=== PATIENT | female | born 1940 | race Caucasian/White ===

== ENCOUNTER 2017-10-17 22:06 | Emergency (ER) | payer MEDICARE ==
[~2017-10-17] VITALS: Ht 157.5 cm; Wt 74.4 kg
[~2017-10-17 22:06] MED LIST: ACET325; ACET325 PO; ALBU3IS; ALBU90OI INH; AMOCLA875 PO; AMOX875 PO; ASCO250CH PO; ASPI325 PO; ASPI81EC PO; AZIT250 PO; AZO STANDARD; Aspir-Low81 MG; Ativan0.5 MG PO; B Complex1 EAC2 PO; BISM87SU PO; BUME1 PO; CALGLU500 PO; CARI350 PO; CEPH500; CHOL10002; CIPR500 PO; CLARITIN PO; CLIN300 PO; CLON.2 PO; CONESTTC PV; CYAN1000I IM; CYAN500 PO; Cranberry300 MG PO; DELESTROGEN; DIPH50 PO; ESTROVEN 155 M155 MG PO; FAMO40 PO; FISH OIL OTC PO; FOLIC ACID; GLUCHON PO; GLUCOSAMINE CHONDROI; GLUCOSAMINE-CH1 EAC8 PO; GLUCOSAMINE/CHONDROI; HYDCHL12.5 PO; Hydrocodone-Ap1 EA23 PO; IPRAOI INH; IRBE75 PO; IRBESARTAN300 MG PO; IRBHYD150 PO; KEFLEX; Keflex500 MG PO; LEVSOD100 PO; LEVSOD88 PO; LIPITOR; LISI20 PO; LOPE2C; LORA1 PO; LORA10ER PO; MECL25 PO; METPRE4DP PO; MULVITB&C PO; NATURE S BOUNTY; NYSTRIT; Norco 5-325 Ta1 EACH PO; OMEP20ER; OXYB5 PO; PHENA200 PO; POTCHL20ER PO; PRED20 PO; PREMARIN CREAM; Percocet 5-3251 EACH PO; Pyridium200 MG; Pyridium200 MG PO; RANI150 PO; RXLORA1 PO; SERT25; SOMA350 MG PO; VALS80 PO; VICODIN 5-3001 EACH PO; VITAMIN B COMP; VITAMIN C; Veetids 500500 MG PO
[2017-10-17] MEDS ORDERED: Cleocin HCl300 MG PO (22:45)
[2018-08-22] MEDS ORDERED: Zofran Odt4 MG PO (05:00)
[2018-08-22] MEDS ORDERED: K-Dur20 MEQ PO (05:00)
[2018-08-26] MEDS ORDERED: Pyridium100 MG PO (22:08)
[2018-08-26] MEDS ORDERED: CEPH500 PO (22:08)
== END 2017-10-17 23:30 | disposition home or self-care (01) ==
LOC: ER 22:06
DX: L97.529 Non-pressure chronic ulcer of other part of left foot with unspecified severity (principal); I10 Essential (primary) hypertension; E03.9 Hypothyroidism, unspecified; I25.2 Old myocardial infarction; Z88.8 Allergy status to other drugs, medicaments and biological substances; Z88.1 Allergy status to other antibiotic agents; Z88.5 Allergy status to narcotic agent; Z88.6 Allergy status to analgesic agent; Z88.0 Allergy status to penicillin; Z88.2 Allergy status to sulfonamides; Z91.09 Other allergy status, other than to drugs and biological substances; Z79.899 Other long term (current) drug therapy; Z79.82 Long term (current) use of aspirin; Z86.73 Personal history of transient ischemic attack (TIA), and cerebral infarction without residual deficits; Z90.710 Acquired absence of both cervix and uterus; Z87.891 Personal history of nicotine dependence
CPT/HCPCS: 99283

== ENCOUNTER → 2018-01-04 | Outpatient (CLI) | payer MEDICARE ==
[~2018-01-04] MED LIST changes: +Cleocin HCl300 MG PO
== END ==
LOC: LAB SHORT 16:38 → LAB 16:38
DX: R30.0 Dysuria (principal)
CPT/HCPCS: 87077; 87086; 87186

== ENCOUNTER 2018-01-11 10:13 | Emergency (ER) | payer MEDICARE ==
[~2018-01-11] VITALS: Ht 157.5 cm; Wt 70.3 kg
[2018-01-11 11:06] LABS: Source, Urine Voided
[2018-01-11 11:18] LABS: BASOPHILS ABSOLUTE AUTO 0.03 K/mm3 (0.00-0.23); BASOPHILS PERCENT AUTO 0 % (0-2); EOSINOPHILS ABSOLUTE AUTO 0.04 K/mm3 (0.00-0.68); EOSINOPHILS PERCENT AUTO 1 % (0-6); Hematocrit 42.4 % (33.0-51.0); IMMATURE GRAN ABSOLUTE AUTO 0.04 K/mm3 (0.00-0.10); IMMATURE GRAN PERCENT AUTO 1 % (0-1); LYMPHOCYTES ABSOLUTE AUTO 1.24 K/mm3 (0.84-5.20); LYMPHOCYTES PERCENT AUTO 16 % (21-46); MONOCYTES ABSOLUTE AUTO 0.37 K/mm3 (0.16-1.47); MONOCYTES PERCENT AUTO 5 % (4-13); Mean Corpuscular HGB 29.9 pg (26.0-34.0); Mean Corpuscular Volume 91 fL (80-100); Mean Platelet Volume 10.6 fL (9.1-12.4); NEUTROPHILS ABSOLUTE AUTO 6.21 K/mm3 (1.96-9.15); NEUTROPHILS PERCENT AUTO 78 % (41-73); Platelet Count 248 K/mm3 (150-400); RDW Standard Deviation 42.7 fL (35.1-46.3); Red Blood Cell Count 4.68 M/mm3 (3.80-5.20); White Blood Cell Count 7.93 K/mm3 (4.00-11.30)
[2018-01-11 11:27] LABS: Alanine Aminotransfer (ALT/SGP 20 U/L (12-78); Albumin, Blood 3.6 g/dL (3.4-5.0); Albumin/Globulin Ratio 1.1 (0.8-1.8); Alk Phos 62 U/L (50-136); Anion Gap 7 mmol/L (6-16); Aspartate Aminotrans (AST/SGOT 20 U/L (12-37); Bilirubin, Total 0.7 mg/dL (0.1-1.0); Blood Urea Nitrogen 7 mg/dL (8-24); Bun/Creatinine Ratio 13.6 (12.0-20.0); CO2, Blood 26 mmol/L (21-32); Calcium, Blood 8.3 mg/dL (8.5-10.1); Chloride, Blood 110 mmol/L (98-108); Creatinine, Blood 0.52 mg/dL (0.40-1.00); Globulin, Blood 3.4 g/dL (2.2-4.0); Glomerular Filtration Rate >60 (60-); Glucose, Blood 95 mg/dL (70-99); Potassium, Blood 3.2 mmol/L (3.5-5.5); Sodium, Blood 143 mmol/L (136-145)
[2018-01-11 11:42] LABS: Bilirubin, Urine Neg (Neg); Blood, Urine 2+ (Neg); Glucose Qualitative, Urine Neg (Neg); Ketones, Urine Neg (Neg); Leukocyte Esterase, Urine Neg (Neg); Nitrite, Urine Pos (Neg); Protein, Urine Neg (Neg); Urobilinogen, Urine NORM (Normal)
[2018-01-11 12:21] LABS: Appearance, Urine Clear (Clear); Color, Urine Pale Yellow (P-Yellow)
[2018-01-11 12:23] LABS: Bacteria Many /hpf; Squamous Epithelial Cells Few /hpf (Few); White Blood Cells, Urine 0-2 /hpf (0-5)
[2018-01-11] MEDS ORDERED: Keflex500 MG PO (13:25)
== END 2018-01-11 13:45 | disposition home or self-care (01) ==
LOC: ER 10:13
PROVIDERS: Emergency Medicine
DX: N39.0 Urinary tract infection, site not specified (principal); Z88.8 Allergy status to other drugs, medicaments and biological substances; Z88.1 Allergy status to other antibiotic agents; Z88.5 Allergy status to narcotic agent; Z88.6 Allergy status to analgesic agent; Z88.2 Allergy status to sulfonamides; Z91.041 Radiographic dye allergy status; Z79.899 Other long term (current) drug therapy; Z79.82 Long term (current) use of aspirin; Z79.2 Long term (current) use of antibiotics; E03.9 Hypothyroidism, unspecified; I10 Essential (primary) hypertension; I25.2 Old myocardial infarction
CPT/HCPCS: 70450; 80053; 81001; 85025; 87077; 87086; 87186; 99284

== ENCOUNTER 2018-05-24 13:28 | Emergency (ER) | payer MEDICARE ==
[~2018-05-24] VITALS: Ht 167.6 cm; Wt 72.6 kg
== END 2018-05-24 15:11 | disposition home or self-care (01) ==
LOC: ER 13:28
DX: I96 Gangrene, not elsewhere classified (principal); E03.9 Hypothyroidism, unspecified; I10 Essential (primary) hypertension; I25.2 Old myocardial infarction; Z88.8 Allergy status to other drugs, medicaments and biological substances; Z88.1 Allergy status to other antibiotic agents; Z88.5 Allergy status to narcotic agent; Z88.6 Allergy status to analgesic agent; Z88.0 Allergy status to penicillin; Z88.2 Allergy status to sulfonamides; Z91.048 Other nonmedicinal substance allergy status; Z86.73 Personal history of transient ischemic attack (TIA), and cerebral infarction without residual deficits; Z87.891 Personal history of nicotine dependence
CPT/HCPCS: 99283

== ENCOUNTER 2018-08-11 13:06 | Emergency (ER) | payer MEDICARE ==
[~2018-08-11] VITALS: Ht 157.5 cm; Wt 72.6 kg
== END 2018-08-11 14:11 | disposition home or self-care (01) ==
LOC: ER 13:06
DX: Z00.00 Encounter for general adult medical examination without abnormal findings (principal); I10 Essential (primary) hypertension; Z88.8 Allergy status to other drugs, medicaments and biological substances; Z88.1 Allergy status to other antibiotic agents; Z88.5 Allergy status to narcotic agent; Z88.6 Allergy status to analgesic agent; Z88.0 Allergy status to penicillin; Z88.2 Allergy status to sulfonamides; Z87.891 Personal history of nicotine dependence
CPT/HCPCS: 99283

== ENCOUNTER 2018-11-17 13:34 | Emergency (ER) | payer MEDICARE ==
[~2018-11-17] VITALS: Ht 167.6 cm; Wt 56.7 kg
[~2018-11-17 13:34] MED LIST changes: +CEPH500 PO; +K-Dur20 MEQ PO; +Pyridium100 MG PO; +Zofran Odt4 MG PO
[2018-11-17 14:05] LABS: Source, Urine Clean Catch
[2018-11-17 14:11] LABS: Bilirubin, Urine Neg (Neg); Blood, Urine 2+ (Neg); Glucose Qualitative, Urine Neg (Neg); Ketones, Urine Neg (Neg); Leukocyte Esterase, Urine 3+ (Neg); Nitrite, Urine Neg (Neg); Protein, Urine Neg (Neg); Specific Gravity, Urine 1.015 (1.003-1.022); Urobilinogen, Urine NORM (Normal)
[2018-11-17 15:32] LABS: Appearance, Urine Hazy (Clear); Color, Urine Yellow (P-Yellow)
[2018-11-17 15:33] LABS: Bacteria Mod /hpf; Red Blood Cells, Urine 0-2 /hpf (0-2); Squamous Epithelial Cells Mod /hpf (Few)
[2018-11-17] MEDS ORDERED: Pyridium100 MG PO (15:35)
[2018-11-17] MEDS ORDERED: Keflex500 MG PO (15:35)
== END 2018-11-17 16:05 | disposition home or self-care (01) ==
LOC: ER 13:34
PROVIDERS: Physician Assistant
DX: N39.0 Urinary tract infection, site not specified (principal); I10 Essential (primary) hypertension; F03.90 Unspecified dementia, unspecified severity, without behavioral disturbance, psychotic disturbance, mood disturbance, and anxiety; Z88.8 Allergy status to other drugs, medicaments and biological substances; Z88.1 Allergy status to other antibiotic agents; Z88.5 Allergy status to narcotic agent; Z87.891 Personal history of nicotine dependence
CPT/HCPCS: 81001; 87077; 87086; 87186; 99283

== ENCOUNTER 2018-11-18 11:33 | Emergency (ER) | payer MEDICARE ==
[~2018-11-18] VITALS: Ht 160 cm; Wt 70.3 kg
== END 2018-11-18 12:20 | disposition home or self-care (01) ==
LOC: ER 11:33
DX: N39.0 Urinary tract infection, site not specified (principal); I10 Essential (primary) hypertension; I25.2 Old myocardial infarction; E03.9 Hypothyroidism, unspecified
CPT/HCPCS: 99283

== ENCOUNTER 2018-11-29 21:36 | Emergency (ER) | payer MEDICARE ==
[~2018-11-29] VITALS: Ht 162.6 cm; Wt 68.0 kg
== END 2018-11-30 01:00 | disposition home or self-care (01) ==
LOC: ER 21:36
DX: Z00.00 Encounter for general adult medical examination without abnormal findings (principal); I10 Essential (primary) hypertension; I25.2 Old myocardial infarction; F03.90 Unspecified dementia, unspecified severity, without behavioral disturbance, psychotic disturbance, mood disturbance, and anxiety; E03.9 Hypothyroidism, unspecified; Z87.440 Personal history of urinary (tract) infections; Z86.73 Personal history of transient ischemic attack (TIA), and cerebral infarction without residual deficits; Z88.1 Allergy status to other antibiotic agents; Z88.2 Allergy status to sulfonamides; Z88.5 Allergy status to narcotic agent; Z88.6 Allergy status to analgesic agent; Z88.0 Allergy status to penicillin; Z91.048 Other nonmedicinal substance allergy status; Z88.8 Allergy status to other drugs, medicaments and biological substances

== ENCOUNTER 2018-12-01 19:54 | Emergency (ER) | payer MEDICARE ==
[~2018-12-01] VITALS: Ht 165.1 cm; Wt 83.9 kg
== END 2018-12-02 00:26 | disposition home or self-care (01) ==
LOC: ER 19:54
DX: M53.3 Sacrococcygeal disorders, not elsewhere classified (principal); F03.90 Unspecified dementia, unspecified severity, without behavioral disturbance, psychotic disturbance, mood disturbance, and anxiety; I10 Essential (primary) hypertension; E03.9 Hypothyroidism, unspecified; I25.2 Old myocardial infarction; Z88.8 Allergy status to other drugs, medicaments and biological substances; Z88.1 Allergy status to other antibiotic agents; Z88.5 Allergy status to narcotic agent; Z88.6 Allergy status to analgesic agent; Z88.0 Allergy status to penicillin; Z88.2 Allergy status to sulfonamides; Z91.041 Radiographic dye allergy status; Z86.73 Personal history of transient ischemic attack (TIA), and cerebral infarction without residual deficits; Z87.891 Personal history of nicotine dependence
CPT/HCPCS: 99283

== ENCOUNTER 2018-12-03 15:41 | Observation (INO) | payer MEDICARE ==
[~2018-12-03] VITALS: Ht 162.6 cm; Wt 57.1 kg
[2018-12-03 16:58] LABS: Source, Urine Clean Catch
[2018-12-03 17:04] LABS: BASOPHILS ABSOLUTE AUTO 0.02 K/mm3 (0.00-0.23); BASOPHILS PERCENT AUTO 0 % (0-2); EOSINOPHILS ABSOLUTE AUTO 0.06 K/mm3 (0.00-0.68); EOSINOPHILS PERCENT AUTO 1 % (0-6); Hematocrit 42.2 % (33.0-51.0); Hemoglobin 13.9 g/dL (11.5-16.0); IMMATURE GRAN ABSOLUTE AUTO 0.02 K/mm3 (0.00-0.10); IMMATURE GRAN PERCENT AUTO 0 % (0-1); LYMPHOCYTES ABSOLUTE AUTO 1.17 K/mm3 (0.84-5.20); LYMPHOCYTES PERCENT AUTO 15 % (21-46); MONOCYTES PERCENT AUTO 7 % (4-13); Mean Corpuscular HGB 30.3 pg (26.0-34.0); Mean Corpuscular HGB Conc 32.9 g/dL (31.5-36.5); Mean Corpuscular Volume 92 fL (80-100); Mean Platelet Volume 10.4 fL (9.1-12.4); NEUTROPHILS ABSOLUTE AUTO 5.84 K/mm3 (1.96-9.15); NEUTROPHILS PERCENT AUTO 77 % (41-73); Platelet Count 285 K/mm3 (150-400); RDW Standard Deviation 43.8 fL (35.1-46.3); Red Blood Cell Count 4.59 M/mm3 (3.80-5.20); White Blood Cell Count 7.61 K/mm3 (4.00-11.30)
[2018-12-03 17:08] LABS: Blood, Urine Neg (Neg); Glucose Qualitative, Urine Neg (Neg); Ketones, Urine Neg (Neg); Leukocyte Esterase, Urine Neg (Neg); Nitrite, Urine Pos (Neg); Protein, Urine 2+ (Neg); Urobilinogen, Urine 3+ (Normal)
[2018-12-03 17:29] LABS: Appearance, Urine Hazy (Clear); Bilirubin, Urine 3+ (Neg); Color, Urine Orange (P-Yellow)
[2018-12-03 17:32] LABS: Bacteria Mod /hpf; Mucus Light (0-Heavy); Squamous Epithelial Cells Few /hpf (Few)
[2018-12-03 17:39] LABS: U Amphetamine Screen Not Detected; U Barbituate Screen Not Detected; U Benzodiazapine Screen Not Detected; U Buprenorphine Screen Not Detected; U Cannabinoids Screen Not Detected; U Cocaine Screen Not Detected; U Methadone Screen Not Detected; U Methamphetamine Screen Not Detected; U Opiates Screen Not Detected; U Oxycodone Screen Not Detected; U Phencyclidine Screen Not Detected; U Propoxyphene Screen Not Detected
[2018-12-03 17:43] LABS: Alanine Aminotransfer (ALT/SGP 15 U/L (12-78); Albumin, Blood 3.4 g/dL (3.4-5.0); Alk Phos 63 U/L (50-136); Anion Gap 6 mmol/L (6-16); Aspartate Aminotrans (AST/SGOT 11 U/L (12-37); Bilirubin, Total 0.3 mg/dL (0.1-1.0); Blood Urea Nitrogen 10 mg/dL (8-24); Bun/Creatinine Ratio 20.4 (12.0-20.0); CO2, Blood 30 mmol/L (21-32); Calcium, Blood 8.8 mg/dL (8.5-10.1); Chloride, Blood 109 mmol/L (98-108); Creatinine, Blood 0.49 mg/dL (0.40-1.00); Ethanol (Alcohol), Blood, Med <3 mg/dL; Globulin, Blood 3.3 g/dL (2.2-4.0); Glomerular Filtration Rate >60 (60-); Glucose, Blood 93 mg/dL (70-99); Potassium, Blood 3.1 mmol/L (3.5-5.5); Salicylate <1.7 mg/dL (2.8-20.0); Sodium, Blood 145 mmol/L (136-145); Total Protein, Blood 6.7 g/dL (6.4-8.2)
[2018-12-03 17:53] LABS: Acetaminophen, Random <2.0 ug/mL (10.0-30.0)
--- NOTE | 2018-12-06 15:31 | NUR ---
PATIENT ARRIVES VIA RECLINER. UNABLE TO GET ANY INFO FROM PATIENT. WHEN ASKED ABOUT HAVING CANCER, STS "EVERY DAY FOR PAST FEW YEARS." THEN TALKS ABOUT HORSES. PHONE NUMBER IN CHART DISCONNECTED, UNABLE TO TALK TO RELATIVES.
--- NOTE | 2018-12-06 16:42 | NUR ---
ALERT TO SELF. HAS BEEN COOPERATIVE SO FAR. WHEN ASKED QUESTION GOES OFF ONTO A FLIGHT OF IDEAS FROM ONE WORD. UNSTEADY ON FEET. CHAIR ALARM ON. UNABLE TO REACH ANY RELATIVES--NUMBER IN CHART DISCONNECTED AND CELL PHONE NUMBER OBTAINED FROM PHARM ALSO DISCONNECTED. BED IN LOW POSITION. SITTER IN ROOM. WILL CONTINUE TO MONITOR.
--- NOTE | 2018-12-06 17:39 | NUR ---
PER DR.KHAN EMANUEL FOR NO IV ASSESS AND CHANGE ZOFRAN TO P.O.
--- NOTE | 2018-12-06 18:10 | NUR ---
PATIENT VIOLENT WITH STAFF. ATTEMPTS TO PUNCH AND KICK EMPLOYEE BENEFITS DIRECTOR. REQUEST RESTRAINTS FROM . OK TO USE VEST OR 4-POINT SOFT.
--- NOTE | 2018-12-06 22:04 | NUR ---
2056 PT LYING IN BED, DENIES ANY DISCOMFORT AT THIS TIME. REFUSING MEDICATIONS AT THIS TIME. CONFUSED CONVERSATION. PT GETS AGITATED IF YOU ATTEMPT TO GIVE HER MEDICATION OR CARE FOR HER BUT WHEN LEFT ALONE APPEARS CALMER. WILL CONT. TO MONITOR. SITTER IN ROOM. CALL LIGHT IN REACH.
--- NOTE | 2018-12-07 01:31 | NUR ---
0019 ASSISTED CATTLE AND WHEAT FARMER IN CHANGING PT. PT EXPRESSING ANGER OVER RESTRAINTS, THREATENING TO KICK US IN THE HEAD FOR CHANGING HER ATTENDS. CONFUSED CONVERSATION. SITTER IN ROOM. CALL LIGHT IS IN REACH.
--- NOTE | 2018-12-07 01:32 | NUR ---
PT LYING IN BED, EYES CLOSED, APPEARS TO BE RESTIG. BREATHING IS EVEN, UNLABORED. NO APPARENT SIGNS OF DISTRESS. CALL LIGHT IS IN REACH. SITTER IS IN ROOM.
--- NOTE | 2018-12-07 04:10 | NUR ---
PT LYING IN BED, EYES CLOSED, APPEARS TO BE RESTING. BREATHING IS EVEN, UNLABORED. NO APPARENT SIGNS OF DISTRESS. SITTER IS IN ROOM. CALL LIGHT IS IN REACH.
--- NOTE | 2018-12-07 04:10 | NUR ---
PT IS ORIENTED TO SELF ONLY. PT DENIED ANY DISCOMFORT FOR THIS SHIFT. ON RA. NO IV-OK TO LEAVE OUT. INCONTINENT, WEARS ATTENDS AND OCCASIONALLY USES BEDPAN. RESTAINTS IN PLACE, PT IS CONFUSED AND ATTEMPTS TO GET OUT BED, SHE IS A HIGH FALL RISK, PT PULLS AT LINES, PT WAS COMBATIVE IN THE ER HOWEVER SINCE ARRIVING TO MEDICAL SHE HAS THREATENED TO HARM STAFF BUT HAS NOT ACTED ON THESE THREATS. PT HAD A SITTER THAT CAME WITH HER FROM THE ER AND STILL HAS A SITTER AT THIS TIME.
--- NOTE | 2018-12-07 04:35 | NUR ---
I WANTED TO ADD THAT AT ONE POINT WHEN WE WERE ASSISTING HER TO USE THE BEDPAN, SHE STATED THAT HER LEGS HADN'T FELT THIS GOOD IN DAYS. THAT SHE HADN'T FELT THIS GOOD IN GENERAL IN DAYS. THE STATISTICAL ASSISTANT AND I TOLD HER WE WERE SO GLAD TO HERE THAT, THAT WAS A VERY GOOD THING TO HEAR. PT STATED IT WAS A VERY GOOD THING FOR HER TO BE ABLE TO SAY AND THEN SHE STARTED TO SMILE A TINY BIT. I REMARKED THAT I THOUGHT I SAW THE START OF A SMILE COMING ON AND THEN SHE SMILED REALLY BIG AND SAID "MAYBE".
--- NOTE | 2018-12-07 05:59 | NUR ---
PT BECAME VERY AGITATED, GOT HERSELF UNTIED FROM HER CHEIKH AND WRIST RESTRAINTS, WAS ATTEMPTING TO LEAVE. CONFUSED CONVERSATION, ASKING WHY WE WERE IN HER HOME, WHO THE HELL DID WE THINK WE WERE, AND OTHER CONFUSED CONVERSATION STATEMENTS. HAD TO CALL SECURITY FOR ASSISTANCE WITH GETTING PATIENT BACK INTO BED, CHANGING HER ATTENDS, AND GIVING HER IM HALDOL. WILL MONITOR FOR EFFECT. PT IS BACK IN BED, RESTRAINTS IN PLACE. SITTER IN ROOM. CALL LIGHT IN REACH. WILL CONT. TO MONITOR. NO OTHER CHANGES THIS SHIFT.
--- NOTE | 2018-12-07 17:44 | NUR ---
PATIENT ORIENTED TO SELF. DOES NOT MAKE MUCH SENSE WHEN TALKING. VISUAL HALLUCINATIONS. PER RECEIVABLE CLERKJOSE CARLOS. DAUGHTER IS GOING FOR [employer]. DAUGHTER STS PATIENT AND FIGHT A LOT. PATIENT NONSTOP TALKING WHEN STAFF IN ROOM AND GOES TO ALL SORTS OF TANGENTS. UNLABORED RESPIRATIONS. DENIES PAIN. VIDEO CAMERA ON. RESTRAINTS RENEWED. WILL CONTINUE TO MONITOR.
--- NOTE | 2018-12-08 07:32 | NUR ---
alert to self, sees hears things others are unaware of, call light in reach, walking rounds completed with day staff
--- NOTE | 2018-12-08 18:07 | NUR ---
PT ALERT VERY CONFUSED, WITH HALUCINATIONS, PT IS A STANDBY ASSIST UP TO THE BATHROOM AND TO THE CHAIR, THE PT IS IN RESTRAINTS AT THIS TIME, THE PT WAS TRIED OFF OF THE RESTRAINTS HOWEVER THE PT WAS UNSTEADY AND INSISTING THAT SHE WAS READY TO GO AND ACTUALLY TRIED TO LEAVE DOWN THE OBRIEN, AT THAT POINT THE RESTRAINTS WERE REAPPLIED, BED AND CHAIR ALRM USED CALL LIGHT IN REACH PT OFFERED WATER T/O THE DAY
--- NOTE | 2018-12-09 06:56 | NUR ---
SHIFT SUMMARY PT HAS REMAINED AWAKE THE ENTIRE SHIFT. PT REFUSED HS MEDS; WOULD NOT TAKE ANYTHING. SAID SHE WOULD TAKE THEM A FEW TIMES AND THEN CHANGE HER MIND. PT ATTEMPTED TO GET OOB MULTIPLE TIMES, PULLING ON RESTRAINTS. PT COMPLETELY CONFUSED AND DISORIENTED. DOES NOT MAKE ANY SENSE. TALKED TO IMAGINARY PEOPLE ALL NIGHT. CALLING THE HR REPRESENTATIVE. YELLING OUT WHEN HEARING OTHER PT'S. NO ACUTE DISTRESS NOTED OR REPORTED. PT WAITING FOR PLACEMENT. BED ALARM AND CHEIKH ON.
--- NOTE | 2018-12-09 17:55 | NUR ---
PT IS ALERT ORIENTED TO SELF ONLY, PT IS UP WITH STAND BY ASSIST, PT HAS BEEN UP INTO THE CHAIR FOR MOST OF THE DAY, PT REMAINS IN A CHEIKH VEST RESTRAINT DUE TO CONFUSED WANDERING AND UNSTEADY GAIT, THE PT DENIED ANY PAIN T/O THE DAY, THE PT WAS GIVEN ZYPREXA 5 MG X1 TODAY THAT HAD LITTLE TO NO EFFECT, PT APPEARS TO BE BREATHING EASILY ON RA AT THIS TIME, CHAIR ALARM IN USE
--- NOTE | 2018-12-09 18:28 | NUR ---
Chantal is aggitated and confused. She was restless saying, "I gotta get this stuff packed and organized." She was fussing with bundles of blankets--moving them from one part of the bed to another. I was unable to calm or divert her attention from "getting this done." [facility]
--- NOTE | 2018-12-10 04:58 | NUR ---
*SHIFT SUMMARY* PATIENT IS ALERT TO SELF. SAT UP IN CHAIR AT BEGINING OF SHIFT IN CHEIKH VEST FOLDING LAUNDRY. PATIENT TOOK SEROQUEL IN [place]ER[place]ERT ICE CREAM AND THEN STATED SHE NEEDED TO GO TO BED. STAFF ASSISTED HER TO BED, GAIT WAS STEADY WITH ASSIST. BED LOWERED AND LOCKED WITH CALL LIGHT IN REACH. PATIENT SLEPT THROUGHOUT THE NIGHT. VITAL SIGNS STABLE. CHEIKH VEST ON IN BED.
[2018-12-10 05:00] LABS: Albumin, Blood 2.9 g/dL (3.4-5.0); Anion Gap 6 mmol/L (6-16); Blood Urea Nitrogen 14 mg/dL (8-24); Bun/Creatinine Ratio 29.7 (12.0-20.0); CO2, Blood 28 mmol/L (21-32); Calcium, Blood 8.4 mg/dL (8.5-10.1); Chloride, Blood 111 mmol/L (98-108); Creatinine, Blood 0.47 mg/dL (0.40-1.00); Glomerular Filtration Rate >60 (60-); Glucose, Blood 91 mg/dL (70-99); Phosphorus, Blood 3.1 mg/dL (2.5-4.9); Potassium, Blood 3.4 mmol/L (3.5-5.5); Sodium, Blood 145 mmol/L (136-145)
--- NOTE | 2018-12-10 15:37 | NUR ---
Pt is seated in her recliner. She seems busy, picking at things on her chair, very active. Per nurse, Debbi, patient is not oriented. She is agitated frequently. Call placed to pt's daughter, Ilana. Reviewed plan of care. Notes indicate that Navin Briceno was discussed with case planner, but not settled on. She does want to confirm that these plans are tenative, and she states that pt now has bilingual patient support caseworker at [facility]. I instructed that I do not know of these plans, but I can have Rosa call and discuss with her. She would like that. Reviewed code status with her. She is telling me that her mother would "never want to be resusitated. Discussed more, reviewed POLST. She would like the POLST to state limited code, DNR/DNI. No artificial nutrition. POLST filled out according to her wishes. Call placed to to notify of code change. RN to place order. Will also follow up with case planner, Rosa.
--- NOTE | 2018-12-10 18:24 | NUR ---
SHIFT SUMMARY WILL ASSESS FOR ANY CHANGES. PATIENT IS CURRENTLY IN A CHEIKH IN HER RECLINER. NO ACUTE CONCERNS WITH THE PATIENT AT THIS TIME. SHE IS STILL VERY AGITATED AND DOES NOT LIKE BEING IN THE HOSPITAL. DR. MONTGOMERY REQUESTS THAT WE TRY TO MEDICATE THE PATIENT AND REMOVE THE RESTRAINTS. AT THIS TIME I DO NOT BELIEVE THIS IS IN THE PATIENT'S BEST INTEREST.
--- NOTE | 2018-12-11 06:04 | NUR ---
SHIFT SUMMARY PT STILL NEEDING CHEIKH RESTRAINT. SAT IN CHAIR UNTIL ABOUT MIDNIGHT THEN SHE WAS READY TO GO TO BED. HAD BM IN BSC BEFORE GETTING INTO BED. TRIED TO GET OOB HERSELF A COUPLE TIMES. SHE WAS ABLE TO SLEEP ON AND OFF T/O NIGHT. BED ALARM IN USE.
--- NOTE | 2018-12-12 01:02 | NUR ---
12/12/18 0100 HALDOL 10 MG IM TO LEFT THIGH PT EXTREMELY AGITATED AND KICKED RN EARLIER WHEN TRYING TO GIVE HER APPLESAUCE.
[2018-12-12 05:23] LABS: Albumin, Blood 3.2 g/dL (3.4-5.0); Anion Gap 7 mmol/L (6-16); Blood Urea Nitrogen 9 mg/dL (8-24); Bun/Creatinine Ratio 21.1 (12.0-20.0); CO2, Blood 27 mmol/L (21-32); Calcium, Blood 8.5 mg/dL (8.5-10.1); Chloride, Blood 110 mmol/L (98-108); Creatinine, Blood 0.43 mg/dL (0.40-1.00); Glomerular Filtration Rate >60 (60-); Glucose, Blood 89 mg/dL (70-99); Potassium, Blood 3.4 mmol/L (3.5-5.5); Sodium, Blood 144 mmol/L (136-145)
--- NOTE | 2018-12-12 07:36 | NUR ---
12/12/18 0630 YELLING AND AWAKE MOST OF NIGHT. RESTRAINT MAINTAINED. SLEPT A COUPLE OF HOURS AFTER HALDOL WAS GIVEN. VITALS STABLE.
--- NOTE | 2018-12-12 18:06 | NUR ---
PT HAS BEEN IN BED WITH POSE VEST SHE DOES NOT HOLD STILL AND CONINUES TO BE A FALL RISK. PT HALLUCINATES AND IS AOX3. PT SPENT MOST OF THE MORING TALKING TO HERSELF AND IS A TWO PERSON TO BEDSIDE COMMODE. PT DOES NOT KNOW HOW TO CALL APPROPRIATELY. WILL CONTINUE TO MONITOR.
--- NOTE | 2018-12-13 02:18 | NUR ---
12/13/18 0210 PT CONTINUOUSLY TRYING TO GET UP. ASSISTED TO BR FOR VOIDING TWICE IN 15 MINUTES. LAST TIME NO VOID. CONFUSED AND STATES FAMILY COMING TO PICK HER UP. RE-ORIENTED NUMEROUS TIMES. SEE MAR FOR MED GIVEN.
--- NOTE | 2018-12-13 06:37 | NUR ---
12/13/18 0615 PT SLEEPING NOW AFTER BEING AWAKE MOST OF NIGHT. CHEIKH VEST MAINTAINED PT IS HIGH FALL RISK AND DOES NOT FOLLOW DIRECTIONS. VITALS STABLE. UP TO BSC SEVERAL TIMES THIS SHIFT FOR VOIDINGS. ENCOURAGED ORAL INTAKE BUT HAS TAKEN FLUIDS FAIR.
[2018-12-13 07:53] LABS: Magnesium, Blood 2.2 mg/dL (1.6-2.4); Potassium, Blood 3.9 mmol/L (3.5-5.5)
--- NOTE | 2018-12-13 19:19 | NUR ---
SHIFT SUMMARY PT UP IN RECLINER CHAIR MOST OF DAY. HAD VISUAL HALLUCINATIONS THIS MORNING AND WAS EASILY DISTRACTED. VEST RESTRAINT IN PLACE FOR SAFETY. 1 PERSON ASSIST TO COMMODE. TALKING ALMOST CONSTANTLY WHILE ALONE IN ROOM AND FIDDLING WITH ANYTHING SHE CAN GET AHOLD OF INCLUDING ANYTHING ON COMPUTER TABLE. IT WAS MOVED AND PTS CHAIR READJUSTED. IN ROOM VISITING TWICE TODAY.
--- NOTE | 2018-12-14 07:56 | NUR ---
12/14/18 0600 CONTINUES TO BE CONFUSED. HAS AUDITORY AND VISUAL HALLUCINATIONS THROUGHTOUT SHIFT. CHEIKH CABRALT ON FOR PT HAFSA. SHE OCC. GETS ANGRY WITH STAFF DURING ROUTINE NURSING CARE.
--- NOTE | 2018-12-14 19:10 | NUR ---
PT. UP IN CHAIR VEST RESTRAINT IN PLACE. PT. HAS HAD VISUAL AND AUDITORY HALLUCINATIONS T/O THE DAY. SPOUSE CAME IN TO SEE PT. BUT ALL THEY DID WAS ARGUE. PT. HAS SLEPT OFF AND ON TODAY. NO CHANGE IN PT. MENTATION OR NEED FOR CHEIKH VEST.
--- NOTE | 2018-12-15 05:11 | NUR ---
VSS, AFEBRILE, A/O TO SELF BUT OTHERWISE VERY CONFUSED, HALLUCIANTING, COMBATIVE W/CARE GIVERS, VEST RESTRAINT TO PREVENT FALLS, HOWEVER REFUSES TO STAY IN BED, PULLS AT THE RESTRAINTS, YELLS, SCREAMS, AND GENERALLY ARGUES W/ANYONE WHO DARES TO ENTER HER ROOM. OOB TO THE LOUNGE CHAIR FOR HER SAFETY.
--- NOTE | 2018-12-15 18:30 | NUR ---
PT. SITTING IN CHAIR HAD GOTTEN OUT OF HER CHEIKH VEST ONCE AGAIN, PLACED A SMALLER ONE ON PT WITH HELP OF 2 CONTAINER COORDINATOR'S. NO CHANGE IN PT. MENTATION TODAY, STILL HAVING VISUAL AND AUDITORY HALLLUCINATIONS. CAN BECOME COMBATIVE AT TIMES AND UNCOOPERATIVE WITH CARE. JEIMY MAYERS CAME AND EVALUATED PT. TODAY. NO OTHER NOTEABLE CHANGES THIS SHIFT.
--- NOTE | 2018-12-16 05:14 | NUR ---
VSS, AFEBRILE, A/O TO SELF, CONFUSED, PARANOID DELUSIONS, HALLUCINATIONS THAT APPEAR TO ANGER/ANNOY HER. SHE ARGUES FIERCELY WITH PEOPLE THAT OTHERS CANNOT SEE AND WHO ARE NOT IN THE ROOM WITH HER. SHE IS SOMETIMES COMPLIANT W/MEDICATIONS.
--- NOTE | 2018-12-16 18:30 | NUR ---
PT. HAS BEEN UP IN CHAIR ALL DAY TODAY. APPEARS TO BE CALMER TODAY BUT STILL HAVING HALLUCINATIONS . PLACED NEW ID BRACELT AND DNR TAG ON LOWER EXTREMETY THE OLD ONE WERE CUTTING INTO HER LEG R/T BLE EDEMA. [facility] HERE TO SEE PT. TODAY.
--- NOTE | 2018-12-17 05:14 | NUR ---
VSS, FEBRILE, A/O TO SELF, LITTLE CHANGE IN STATUS, STILL ARGUING W/HER HALLUCINATIONS, STILL REFUSING TO STAY IN BED, SLEPT IN BED SIDE CHAIR, VEST RESTRAINT INTACT AND UNDISTRUBED BY PT OVERNOC.
--- NOTE | 2018-12-17 18:32 | NUR ---
SHIFT SUMMARY THE PATIENT PRESENTED THIS SHIFT CONFUSED A&O THE SELF, VITALS WNL AND WITH CLEAR LUNGS SOUNDS. THE PATIENT SAT IN HER CHAIR ALL SHIFT AND DID WELL WITH THE DISTRACTIONS PROVIDED. THE PATIENT BECAME AIGIVATED WHEN HER SPOUSE CAME TO VISIT AND HE LEFT AFTER A HALF HOUR VISIT. THE PATIENT DID CALM DOWN TO WATCH TV AND EAT DINNER. THE PATIENT IS WATCHING TV AT THIS TIME, WILLCONTINUE TO MONITOR.
--- NOTE | 2018-12-18 04:47 | NUR ---
VSS, AFEBRILE, A/O TO SELF, PT OBSERVED TO BE TALKING TO HER HALLUCINATIONS BEFORE BEDTIME. SHE EXPLAINED THAT THERE WERE THREE OF HER GREAT GRANDCHILDREN SLEEPING IN HER BED. PT SLEPT IN THE LOUNGE CHAIR IN HER ROOM BECAUSE SHE IS TOO PARANOID TO TRUST SLEEPING IN HER BED. NO COMPLAINTS.
--- NOTE | 2018-12-18 05:49 | NUR ---
PT HAS NOT URINATED VERY MUCH FOR THIS SHIFT. PT WAS CHECKED OFTEN DURING THE NOC, BUT SHE DID NOT URINATE VERY MUCH. SHE HAD ONE WET ATTENDS AND ABOUT 50 ML IN THE BEDSIDE COMMODE. PT DENIES ABD PAIN OR PRESSURE. IT MIGHT BE NECESSARY TO GET AN ORDER FOR A BLADDER SCAN IF SHE DOES NOT URINATE MORE AFTER BREAKFAST. PT DOES NOT DRINK MUCH WATER DURING THE NIGHT, SO THIS MIGHT ACCOUNT FOR HER LOW OUTPUT. WILL REPORT TO ON-COMING SHIFT.
--- NOTE | 2018-12-18 15:01 | NUR ---
ASSUMED CARE FROM DESTINY DURANT. NO ACUTE CHANGES NOTED. PATIENT WAS AGITATED WHEN CARES WERE ASSUMED BUT HAS SINCE CALMED DOWN WITH THE PRN ZYPREXA THAT WAS ADMINISTERED. NO CURRENT COMPLAINTS OF PAIN OR DISCOMFORT NOTED. CHEIKH VEST IN PLACE. WILL CONTINUE TO MONITOR FOR CHANGES.
--- NOTE | 2018-12-18 18:55 | NUR ---
NO ACUTE CHANGES NOTED. NO CURRENT COMPLAINTS OF PAIN OR DISCOMFORT NOTED. PATIENT CONTINUES IN [facility]. NO OTHER ISSUES NOTED AT THIS TIME. WILL CONTINUE TO MONITOR FOR CHANGES.
--- NOTE | 2018-12-19 05:05 | NUR ---
SHIFT SUMMARY PT IN BEDSIDE CHAIR A FAIR AMOUNT THIS SHIFT, FINALLY TO BED AROUND 1. NO ACUTE EVENTS NOTED DURING THE NIGHT, WILL CONTINUE TO MONITOR.
--- NOTE | 2018-12-19 15:54 | NUR ---
NOTIFIED DR OWENS OF LAST CHARTED BM ON 12/14/18, ATTEMPTED TO USE PRUNE JUICE THIS AM WITH NO RESULTS. DR OWENS TO PLACE ORDERS FOR BOWEL CARE.
--- NOTE | 2018-12-19 19:24 | NUR ---
SHIFT SUMMARY PT A&O TO SELF. CONFUSED, SPEECH NONSENSICAL AT TIMES. PT HAVING VISUAL AND AUDITORY HALLUCINATIONS. PT CALLS OUT FOR SUPERVISOR ELECTRON[employer] PROCESSING. 1-2 PERSON ASSIST TO BSC. PT DENIES PAIN, SOB AND N/V DURING SHIFT. TAKES MEDICATION WITH APPLESAUCE/PUDDING WHOLE. NO BM CHARTED SINCE 12/14/18, MEDICATED WITH MIRALAX AND SENOKOT PER PRN ORDERS. VSS. NO OTHER ACUTE CHANGES NOTED DURING SHIFT. REPORT GIVEN TO ONCOMING RN.
--- NOTE | 2018-12-20 05:04 | NUR ---
SHIFT SUMMARY PT HAD LARGE BM BEFORE GOING TO BED TONIGHT. HAS SLEPT WELL DURING NIGHT. NO ACUTE EVENTS NOTED DURING THE NIGHT, WILL CONTINUE TO MONITOR.
--- NOTE | 2018-12-20 20:00 | NUR ---
SHIFT SUMMARY PT A&O TO SELF AND FAMILY. PT PLEASANTLY CONFUSED FOR MAJORITY OF SHIFT, HAD TWO EPISODES OF TEARS CALLING OUR FOR DAUGHTERS. PT HAVING CONVERSATIONS WITH NO ONE ELSE IN THE ROOM, AUDITORY AND VISUAL HALLUCINATIONS. SPEECH NONSENSICAL AT TIMES. PT DENIES PAIN, SOB AND N/V DURING SHIFT. 1-2 PERSON ASSIST TO BSC AND CHAIR. UP IN CHAIR T/O SHIFT. VSS. NO OTHER ACUTE CHANGES NOTED DURING SHIFT. REPORT GIVEN TO ONCOMING RN.
--- NOTE | 2018-12-21 05:06 | NUR ---
Rn summary: Patient is oriented to self, she started off the beginning of shift yelling very loudly for her daughter. Difficult to redirect. Pt has been up in chair most of shift until 0345 this am. Pt is oriented to self. Sometines she is able to follow directions. Pt has worked most of the night on her "paperwork". Pt is able to walk to the BR with 1 assist. Pt did fall on the way back from the bathroom at 2201. She lost her balance, bumped into BR door, slid to floor landing on her bottom. Dr. Taveras was notified, message left for daughter Ilana to call. She called back about 0200 and was notified of fall, no apparent injury at this time. Pt did finally go to bed after going to the BR again. She has been sleeping since. She is in XAPPmediat elsi for safety. Pt is a high fall risk and she is impulsive and forgetful. Pt would not take her evening seroquel, tried multiple times, crushed and in ice cream. Pt is suspicious of medications. Pt has been pleasant most of shift. She did talk at length with people who are not there. Continued close monitoring. bathroom again at 0345. Pt is in a
--- NOTE | 2018-12-21 20:41 | NUR ---
SHIFT SUMMARY PATIENT A&O TO SELF. VERY CONFUSED. DENIES ANY PAIN OR SOB. HARD TO REORIENT. REFUSED AM MEDICATIONS. POSI VEST IN PLACE. Q 2 HR RESTRAINT ASSESSMENT. Q2 REPOSITION. NO ACUTE CHANGES THIS SHIFT.
--- NOTE | 2018-12-22 08:15 | NUR ---
Rn summary: Patient has labile emotions. Pt is happy one minute then she will say " I am so angry at you right now". Pt did take her seroquel and did sleep much better this shift. Pt was incontinent of urine x1. Pt spends a lot of time in the recliner. She is in vest elsi restaint. Physical condition is stable. Chair or bed alarm also for safety.
[2018-12-22 10:14] LABS: Albumin, Blood 3.2 g/dL (3.4-5.0); Anion Gap 6 mmol/L (6-16); Blood Urea Nitrogen 11 mg/dL (8-24); Bun/Creatinine Ratio 23.1 (12.0-20.0); CO2, Blood 31 mmol/L (21-32); Calcium, Blood 8.5 mg/dL (8.5-10.1); Chloride, Blood 107 mmol/L (98-108); Creatinine, Blood 0.48 mg/dL (0.40-1.00); Glomerular Filtration Rate >60 (60-); Glucose, Blood 89 mg/dL (70-99); Phosphorus, Blood 2.9 mg/dL (2.5-4.9); Potassium, Blood 3.3 mmol/L (3.5-5.5); Sodium, Blood 144 mmol/L (136-145)
--- NOTE | 2018-12-22 18:37 | NUR ---
SHIFT SUMMARY PATIENT IS PLEASANTLY CONFUSED TODAY. SHE IS IN A CHEIKH VEST IN THE CHAIR. SHE IS WORKING ON "BUILDING A NEW HOSPITAL". HAS BEEN IN TO VISIT. PATIENT IS CGA TO BATHROOM. NO ACUTE CHANGES.
--- NOTE | 2018-12-23 07:24 | NUR ---
SHIFT SUMMARY PT IS A 78 Y/O FEMALE, ADMITTED FOR AGITATION. THE PT IS A&O X SELF ONLY, AND PLEASANTLY CONFUSED. THE PT HAS A FLIGHT OF IDEAS, AND CAN BE DIFFICULT TO REDIRECT. SHE DENIED ANY COMPLAINTS OF PAIN, NAUSEA OR SOB DURING THE NIGHT, AND SLEPT WELL OFF AND ON THROUGH THE NIGHT. VITALS STABLE. NO OTHER ACUTE CHANGES IN PT CONDITION NOTED. WILL CONTINUE TO MONITOR AND TREAT PER EMAR.
--- NOTE | 2018-12-23 18:25 | NUR ---
SUMMARY PT SITTING UP IN THE CHAIR AT THE BEDSIDE EATING HER DINNER, PT HAS REMAINED CONFUSED, BUT PLEASANT, PT WITH FLIGHT OF IDEAS AND RAMBLING SPEECH, PT CONCERNED WITH PAPERS SHE HAS WRITTEN ON T/O THE DAY, PT VERY IMULSIVE, CHEIKH VEST ON FOR SAFETY, PT DOES NOT REORIENT, PT IS A 1 PERSON ASSIST, VSS, NO ACUTE CHANGES, WILL CONT TO MONITOR
--- NOTE | 2018-12-24 06:39 | NUR ---
SHIFT SUMMARY PT IS A 78 Y/O FEMALE, ADMITTED FOR AGITATION. SHE HAS A HX OF DEMENTIA, AND IS A&O X SELF AND FAMILY ONLY. SHE IS PLEASANTLY CONFUSED, AND CAN BE DIFFICULT TO REDIRECT AND SOMEWHAT RESISTANT TO CARE. THE PT SLEPT WELL THROUGH THE NIGHT WITH NO COMPLAINTS OF PAIN, NAUSEA OR SOB. VITAL SIGNS STABLE. NO ACUTE CHANGES IN PT CONDITION NOTED. WILL CONTINUE TO MONITOR AND TREAT PER EMAR.
--- NOTE | 2018-12-24 18:49 | NUR ---
SUMMARY PT SITTING UP IN THE CHAIR AT THE BEDSIDE EATING HER DINNER AND VISITING WITH SPOUSE, PT REMAINS IN RESTRAINTS FOR SAFETY, VSS, NO ACUTE CHANGES, WILL CONT TO MONITOR
--- NOTE | 2018-12-25 07:27 | NUR ---
alert and orintated to self, sees pets in room and hears family in [place], call light in reach, incontinent, no IV room air, walking rounds completed with day staff
--- NOTE | 2018-12-25 17:30 | NUR ---
SHIFT SUMMARY 78 YEAR OLD FEMALE ADMITTED FOR AGITATION & DANGER TO OTHERS. SHE IS A DNR. CURRENTLY SHE IS IN A CHEIKH VEST. THIS PT WANDERS AND THROWS THINGS AT OTHERS, IT WAS REPORTED TO ME THAT THE PT BECAME AGITATED 15 MINUTES AGO AND BEGAN THROWING THINGS AT THE NURSING ASSISTANTS. SHE DID REFUSE TO TAKE ORAL CALMING MEDICATIONS AND IV MEDICATIONS. WE HAVE BEEN GIVING HER MEDS WITH APPLESAUCE, ALTHOUGH SHE CAN TAKE THEM WITH WATER. SHE IS AWAITING PLACEMENT. HALLUCINATES AND IS DELUSIONAL. SHE IS CALM AT TIMES AND EXPERIENCES FLIGHTS OF IDEAS. PT CALLS OUT AND YELLS FREQUENTLY ABOUT HER HALLUCINATIONS AND CONFUSION.
--- NOTE | 2018-12-26 02:17 | NUR ---
12/26/18 0205 SLEEPING WELL WITH CHEIKH VEST ON. BED ALARM ON. VITALS STABLE. OCC. USES BSC WITH HELP AND OCC. IS INCONTINENT OF URINE. INCONINENT BRIEFS ON.
--- NOTE | 2018-12-26 07:21 | NUR ---
12/26/18 0600 UNEVENTFUL NIGHT. NO CHANGE FROM PREVIOUS NOTE.
--- NOTE | 2018-12-26 18:01 | NUR ---
SHIFT SUMMARY 78 YEAR OLD FEMALE ADMITTED FOR AGITATION AND DANGER TO OTHERS. TODAY PT HAS EXPERIENCED FREQUENT EPISODIC OUTBURSTS OF ANXIETY AND FLIGHT OF IDEAS, HALLUCINATIONS. THESE EPISODES SEEM TO WORSEN FOLLOWING FAMILY VISITS, POSSIBLY DUE TO THE EMOTIONAL TIES. THESE HALLUCINATIONS SEEM REAL TO THIS PT AND SHE DOES WANT TO IMMEDIATELY ACT ON THEM. DNR STATUS. HAVE BEEN CRUSHING MEDS AND MIXING THEM WITH VANILLA PUDDING, IT IS SOMETIMES DIFFICULT TO GET HER TO AGREE TO TAKE IT - NONETHELESS. AWAITING PLACEMENT FOR THIS PATIENT.
--- NOTE | 2018-12-27 06:30 | NUR ---
12/27/18 0615 [place] [facility] [place]. SLEPT WELL AFTER GIVEN ZYPREXA IM EARLIER. PRIOR TO THIS MED PT WAS YELLING AND HALLUCINATING AND PHYSICALLY SLAPPED RN WHEN TRYING TO GIVE HER ICE CREAM AND MED. VITALS STABLE.
--- NOTE | 2018-12-27 09:38 | NUR ---
FACESHEET FOR [facility] CONSULT SENT TO ED.
--- NOTE | 2018-12-27 17:06 | NUR ---
SHIFT SUMMARY- PT A/O TO SELF ONLY. PT VERY CONFUSED AND SITS AND TALKS TO SELF, OCC HALLUINCATION. PT UP IN RECLINER T/O MOST OF THE DAY. PT DENIES ANY COMPLAINTS. LS CLEAR, ON RA. PT INCONT OF URINE AT TIMES. 1 ASSIST OOB. PT COOPERAITVE WITH CARE TODAY AND TOOK MEDS WELL WITH VANILLA PUDDING. PT IMPULSIVE AND ATTEMPTS TO GET OUT OF BED/CHAIR, PT SCOOTS AROUND IN THE RECLINER TRYING TO GET UP EVEN WITH CHEIKH VEST ON. PT YELLS OUT AT TIMES. PT AWAITING PLACEMENT. NO OTHER ACUTE CHANGES THIS SHIFT.
--- NOTE | 2018-12-28 03:03 | NUR ---
12/28/18 0305 PT SLEEPING. CHEIKH VEST IN PLACE. OCC. WAKES UP AND CALLS OUT LOUD A NAME. STATES SHE IS CALLING HER DOG. RE-ORIENTED TO SURROUNGINGS. ANSWERS WITH INAPPROPRIATE, DISCONNECTED STATESMENTS.
--- NOTE | 2018-12-28 06:47 | NUR ---
12/28/18 0615 AWAKENED BY LAB FOR BLOOD DRAW. PT ALLOWED LAB TO DRAW BLOOD. PT VERY PLEASANT AND ASSISTED UP TO BSC. PT WAS INCONTINENT OF URINE. TOOK MED WITH PUDDING. VITALS STABLE. MUCH BETTER SLEEP THIS NIGHT.
[2018-12-28 06:51] LABS: Albumin, Blood 2.7 g/dL (3.4-5.0); Anion Gap 5 mmol/L (6-16); Blood Urea Nitrogen 18 mg/dL (8-24); Bun/Creatinine Ratio 43.1 (12.0-20.0); CO2, Blood 28 mmol/L (21-32); Chloride, Blood 110 mmol/L (98-108); Creatinine, Blood 0.42 mg/dL (0.40-1.00); Glomerular Filtration Rate >60 (60-); Glucose, Blood 85 mg/dL (70-99); Phosphorus, Blood 3.3 mg/dL (2.5-4.9); Potassium, Blood 3.8 mmol/L (3.5-5.5); Sodium, Blood 143 mmol/L (136-145)
--- NOTE | 2018-12-28 16:56 | NUR ---
SHIFT SUMMARY- PT CONFUSED. PT YELLING OUT MOST OF THE AM FOR HER DAUGHTER, PT MEDICATED WITH PRN SEROQUEL AND PT HAS BEEN PLEASANT AND COOPERATIVE MOST OF THE AFTERNOON. PT TAKES MEDICATIONS WITHOUT DIFFICULTY. TALKING WITH STAFF. PT DOES ATTEMPT TO GET UP OUT OF RECLINER BUT REMAINS IN CHEIKH. NO OTHER ACUTE CHANGES THIS SHIFT.
--- NOTE | 2018-12-29 06:28 | NUR ---
SHIFT SUMMARY PT PLEASANTLY CONFUSED THROUGH MOST OF THE NIGHT. AGITATED AT START OF SHIFT WHEN LEFT ALONE IN THE ROOM, YELLING OUT AND ATTEMPTING TO GET OUT OF CHAIR. CHEIKH REMAINS IN PLACE. PT FIDGETS WITH THINGS IN FRONT OF HER. BEDTIME SEROQUEL GIVEN AND VERY EFFECTIVE. PT SLEPT WELL AND WAS CALM FOR REMAINDER OF THE EVENING. PT CONTINENT X 1 AND INCONTINENT THE REST OF THE EVENING. UP TO BSC W/ ONE ASSIST. LARGE BROWN FORMED BM THIS SHIFT. OTHERWISE NO ACUTE CHANGES. VSS. WILL CONTINUE TO MONITOR AND REPORT TO DAY RN.
--- NOTE | 2018-12-29 11:46 | NUR ---
RESTRAINTS REMOVED RESTRAINTS REMOVED FOR A TRIAL TO SEE HOW PT DOES WITHOUT THE CHEIKH VEST. UP CURRENTLY UP IN RECLINER WITH CHAIR ALARM ON. PT TOILETED & OFFERED FLUIDS. WILL CONTINUE TO MONITOR.
--- NOTE | 2018-12-29 16:50 | NUR ---
SHIFT SUMMARY PT UP IN CHAIR IN HALLWAY. AIDE SITTING WITH PT ASSISTING WITH GETTING HER STARTED ON COLORING. PT OFF RESTRAINTS MOST THE SHIFT. PT CONTINUES TO GET OUT OF CHAIR OFTEN, SETTING HER ALARM OFF. PT MEDICATIONS CHANGED IN HOPES TO DECREASE NEED FOR RESTRAINTS. PT REORIENTED THROUGHOUT SHIFT, YET CONTINUES TO GET OUT OF CHAIR UNASSISTED AND WALK AROUND. PT WOBBLY ON FEET. NO OTHER CHANGES IN ASSESSMENT AT THIS TIME. VSS. PT HAS DENIED PAIN THIS SHIFT. WILL CONTINUE TO MONITOR UTIL TURNOVER IS COMPLETE. DR. DAWSON AWARE OF PT BEHAVIOR.
--- NOTE | 2018-12-29 23:40 | NUR ---
nurse note: Pt remains very confused and impulsive. I was able to get pt back in bed and was able to get her seroquel down. Pt asleep for a while but wakes up at any outside noise thinking that it is her family. Pt on camera and bed alarm on so door closed. Pt able to sleep for a while. Will continue to monitor closely.
--- NOTE | 2018-12-30 04:34 | NUR ---
Shift summary: Pt remains very confused but was able to get some sleep last pm. Pt does better if she cannot hear all the noises going on in hospital. With bed alarm on and camera on in room, was able to close her door. Pt was up to void x 2 during night but otherwise she has been able to sleep. Pt thinks all the noises she hears are for her and hallucinates that her family is in room.
--- NOTE | 2018-12-30 17:53 | NUR ---
SHIFT SUMMARY PT TOLERATING NE RESTRAINTS WELL. PT UP IN CHAIR IN THE HALLWAY TO VISIT WITH & OBSERVE STAFF. PT DENIES PAIN. PT COOPERATIVE THIS SHIFT. PT CONTINUES TO BE IMPULSIVE WHEN SHE NEEDS SOMETHING. PT SITTING UP PLEASANTLY IN HER CHAIR EATING DINNER. PT VERY CONFUSED, BUT EASILY REDIRECTED. NO OTHER CHANGES IN ASSESSMENT AT THIS TIME. VSS. WILL CONTINUE TO MONITOR UNTIL TURNOVER IS COMPLETE.
--- NOTE | 2018-12-31 05:37 | NUR ---
NOC ENGINEER SUMMARY NO ACUTE CHANGES THIS SHIFT. PT AAOX1, CONFUSED AND IMPULSIVE. BED AND CHAIR ALARM ON AT ALL TIMES. PT GETS OUT OF BED OFTEN BUT IS USUALLY EASILY DIRECTED BACK TO BED. 1 PERSON ASSIST WITH AMBULATION. AROUND MIDNIGHT PT FINALLY WENT TO SLEEP AND HAS BEEN RESTING COMFORTABLY. VSS, WILL CONTINUE TO MONITOR.
--- NOTE | 2018-12-31 17:05 | NUR ---
SHIFT SUMMARY PT HAS HAD A GOOD DAY THIS SHIFT. PT PLEASANT & COOPERATIVE. PT UP IN CHAIR LISTENING TO MUSIC MOST THE SHIFT IN THE HALLWAY WITH STAFF. PT VISITED BY THIS SHIFT. PT HAD DELUSION THAT HER WAS GOING INTO OTHER ROOMS TO VISIT OTHER WOMEN & BECAME EMOTIONAL. DECIDED TO LEAVE & PT CALMED DOWN. NO RESTRAINTS NEEDED FOR 2 DAYS NOW. NO OTHER CHANGES IN ASSESSMENT AT THIS TIME. WILL CONTINUE TO MONITOR UNTIL TURNOVER IS COMPLETE. VSS.
--- NOTE | 2019-01-01 06:19 | NUR ---
SHIFT SUMMARY: PT WAS RESTLESS AND AGITATED AT START OF SHIFT. ADMNISTERED PM SEROQUEL AT 2100 IN VANILLA PUDDING PER ORDERS; PT ATTEMPTED SEVERAL BED EXITS AND SET OF BED ALARM , ABOUT 10X/HR, UNTIL FINALLY FALLING ASLEEP AROUND 0130. ABLE TO REFRAIN FROM RESTRAINTS IN ORDER TO HAVE SUCCESS IN PT PLACEMENT TO FACILITY. VSS. PT SPEECH IS PRESSURED, NONSENSICAL, RAMBLING. PT IS "AT HER BASELINE", PER FAMILY. NO OTHER CHANGES TO REPORT, WILL CONT TO MONITOR AND PROVIDE CARE UNTIL PRESUMED BY ONCOMING RN.
--- NOTE | 2019-01-01 16:00 | NUR ---
AGITATION PT VERY AGITATED AND YELLING AT VISITORS WALKING IN HALLS. THIS RN GAVE PT SCHEDULED 1600 SEROQUEL EARLY FOR AGITATION BUT PT CONTINUES TO BE AGITATED AND TRYING TO LEAVE, YELLING AT STAFF. THIS RN CALLED DR. DAWSON AND DISCUSSED WITH HIM THAT PT IS YELLING AT VISITORS AND CONTINUES TO BE VERY AGITATED AFTER RECEIVING 50MG SEROQUEL. DR. DAWSON GAVE ORDERS THAT THIS RN COULD GIVE THE 25MG SEROQUEL PRN DOSE AT THIS TIME TO SEE IF PT BECOMES LESS AGITATED. WILL CONTINUE TO MONITOR FOR EFFECTIVENESS.
--- NOTE | 2019-01-01 19:06 | NUR ---
SHIFT SUMMARY PT HAS BEEN VERY AGITATED MOST OF THE AFTERNOON. PT RECEIVED HER SCHEDULED AND PRN SEROQUEL THIS AFTERNOON AND PT HAS CALMED DOWN AND IS NO LONGER AGITATED. PT COOPERATIVE WITH CARE AT THIS TIME. NO ACUTE CHANGES THIS SHIFT. REPORT GIVEN TO HALEY DURANT. CALL LIGHT IN REACH.
--- NOTE | 2019-01-02 05:33 | NUR ---
SHIFT SUMMARY: PT IS AGITATED AND WANDERING EARLY IN THE SHIFT. PT RETURNED TO ROOM AND SAT IN BED WATCHING TV FOR A BIT, HOWEVER ATTEMPTS TO EXIT BED SEVERAL TIMES IN AN HR. ADMINISTERED PM SEROQUEL EARLY PT WAS AGITATED. PT CAN BECOME QUITE DEFENSIVE c STAFF, ESPECIALLY WHEN BEING TOLD WHAT TO DO. PT DOES NOT BECOME COMBATIVE. CONCEALED MEDS IN VANILLA PUDDING PER DR ORDERS. BED ALARM ON FOR SAFETY T/O NIGHT PT IS A FALL RISK AND SBA WHEN AMBULATING D/T CONFUSION. NO OTHER CHANGES TO REPORT. WILL CONT TO MONITOR AND PROVIDE CARE UNTIL PRESUMED BY ONCOMING RN.
--- NOTE | 2019-01-02 17:45 | NUR ---
SHIFT SUMMARY PT HAS BEEN MORE CALM AND COOPERATIVE THIS SHIFT. PT CONTINUES TO BE VERY CONFUSED AND UNABLE TO REORIENT. NO ACUTE DISTRESS THIS SHIFT. NO ACUTE CHANGES. WAITING FOR PLACEMENT. WILL CONTINUE TO MONITOR AND REPORT TO ONCOMING RN.
--- NOTE | 2019-01-02 21:27 | NUR ---
2030 PT UP OOB WITH GAIT SLIGHTLY UNDSTEADY AND UNABLE TO FOLLOW ANY DIRECTIONS FROM STAFF, PT VERY CONFUSED WHILE SWEARING AT STAFF AND THROWING HER PERSONAL EFFECTS--LETTERS TO GROUND X 3. PT ATTEMPTED TO KICK THIS NURSE WITH RIGHT LEG IN GROIN AND THEN HEAD BUTTED THIS NURSE TO ABDOMEN (PTS GLASSES FELL TO GROUND AND RIGHT LENS FELL OUT OF FRAME WHICH UNBROKEN, FRAME FRACTURED ON RIGHT SIDE AND REPAIRED WITH TAPE AND GIVEN BACK TO PATIENT). PT WAS ASSISTED BY STAFF TO CHAIR IN HALLWAY AND WAS ABLE TO RELAX BETTER. 2100 PT RESTING COMFORTABLY AND MORE CALMLY IN HALLWAY CHAIR.
--- NOTE | 2019-01-03 00:11 | NUR ---
took report and assumed care of thie patient.
--- NOTE | 2019-01-03 11:14 | NUR ---
PATIENT YELLING AND AGITATED. TRIED TO SIT IN THE ROOM WITH HER AND TALK TO HER TO CALM HER DOWN BUT IT JUST ESCALATED HER AGITATION.
--- NOTE | 2019-01-03 11:42 | NUR ---
ASSUMED CARE OF PT- AT THE START OF THE SHIFT, BEDSIDE REPORT COMPLETED WITH NIGHT RN GEOVANY. PT HAS NO C/O PAIN OR ANXIETY. PT WILLINGLY TOOK SCHEDULED MORNING MEDS. PT BECAME AGGITATED AND BEGAN SCREAMING INTO THE HALLS "HELP, HELP I'M BEING KIDNAPPED!"
--- NOTE | 2019-01-03 11:46 | NUR ---
PT AGGITATION- PT BECAME INCONSOLABLE, STAFF WERE UNABLE TO REDIRECT HER FOR LONG, PT REFUSED ORAL PRN, CUFF PRESSER CALLED DR SEGOVIA AND ORDER WAS PLACED FOR IM ZYPREXA. CALLED SECURITY TO COME SEE THE PT, THE PT IS CONCERNED WITH SECURITY, THIS SEEMED TO HELP A LITTLE. PALLIATIVE CARE RN PAULINA CAME AND SPOK TO THE PT, SHE CALMED HER A BIT WELL. DEA CARVER IS CURRENTLY IN THE ROOM SITTING WITH THE PT. SHE HAS STOPPED YELLING OUT AND SCREAMING AT THIS TIME. NO IN ZYPREXA GIVEN AT THIS TIME.
--- NOTE | 2019-01-03 20:06 | NUR ---
SHIFT SUMMARY- PT HAD SEVERAL HOURS DURRING THE DAY THAT SHE WAS PLEASENTLY CONFUSED, AFTER HER VISITED SHE BECAME ANGRY, STAFF THAT HAD A GOOD REPORE NO LONGER "COULD BE TRUSTED." PT BECAME PARANOID THAT SOMEONE WAS KEEPING HER CHILDREN FROM HER. ALL ATTEMPTS TO REDIRECT HAVE FAILED, PT YELLING SO MUCH SHE IS BECOMING LIGHT HEADED, PRN MEDICATION ARRIVED FROM PHARMACY AND WAS ADMINISTERED PER EMAR WITH THE ASSISTANCE OF OTHER STAFF, DUE TO PT REFUSAL TO TAKE PO MEDICATION OR EAT ANYTHING GIVEN TO HER. AT CHANGE OF SHIFT THE PT WAS LAYING IN BED WITH HER CALL LIGHT IN REACH, STILL CONFUSED BUT CALM. BECOMING MORE PLEASENT LIKE SHE WAS PRIOR TO THE RECENT EPISODE. SECURITY WERE CALLED TO VISIT THE PT THIS MORNING AND ASSISTED THIS EVENING TO GET HER BACK TO BED. CHECKED ON PT MULTIPLE TIMES AFTER MEDS WERE GIVEN, SHE APPEARS COMFORTABLE.
--- NOTE | 2019-01-03 20:43 | NUR ---
brief interaction with pt in attemtpt to calm pt for nuring. suggest pharmacy review for possible medication reation pt has many allergies. no extrapyramial symptoms noted. suggest check for UTI and asses for pain tylenol may help pt comfort.
--- NOTE | 2019-01-04 05:39 | NUR ---
SHIFT SUMMARY PT CONFUSED ORIENTED TO SELF ONLY. CHEIKH VEST IN USE HIGH FALL RISK AND STILL TRYING TO GET OOB. SHE TOOK HER MEDS CRUSHED IN ICE CREAM. ABLE TO FALL ASLEEP AFTER MIDNIGHT AND WOKE UP AROUND 0500. INCONT OF URINE. BED ALARM IN USE.
--- NOTE | 2019-01-04 09:37 | NUR ---
PT REFUSING TO TAKE ANY MEDICATIONS TODAY.
--- NOTE | 2019-01-05 07:06 | NUR ---
alert, talkative, vest restrain, apparently unaware she is wearing a restratint, call light in reach, no IV, room air, walking rounds coompled with returning day shift nurse
--- NOTE | 2019-01-05 17:49 | NUR ---
PT HAS BEEN AOX3 WITH A LOT OF CONFUSION. PT HAS BEEN MORE COOPERATIVE TODAY AND HAS TAKEN MEDICAITONS IN PUDDING. PT STILL NOT TRUSTFUL OF CARE TAKERS AT TIMES. PT NOW GETTING WORKED UP AND EMOTIONAL DUE TO VISITING AND THEN HEADING OUT. PT FOCUSING ON NEEDING HER AND HARD TO REDIRECT.WILL CONTINUE TO MONITOR.
--- NOTE | 2019-01-06 05:09 | NUR ---
SHIFT SUMMARY PT HAS HAD NO ACUTE EVENTS DURING THE NIGHT. PT REMAINS IN CHEIKH VEST, UP IN CHAIR FOR PART OF SHIFT. PT TO BED AROUND MIDNIGHT. HAS SLEPT WELL DURING THE NIGHT, WILL CONTINUE TO MONITOR.
--- NOTE | 2019-01-06 18:14 | NUR ---
SHE IS SITTING IN THE OBRIEN EATING DINNER. HER CAME TO SEE HER LATE THIS AFTERNOON BUT IT WAS WHEN SHE TOOK A NAP. SHE IS ASKING FOR HIM. RESTRAINT DC'D THIS AFTERNOON. NO OTHER CHANGES.
--- NOTE | 2019-01-07 05:18 | NUR ---
SHIFT SUMMARY PT SLEPT WELL AFTER 1 AM. PT UP AND DOWN SEVERAL TIMES BEFORE FINALLY FALLING ASLEEP. PT CONFUSED TO WHO STAFF AND FAMILY WERE DURING THE NIGHT. NO FAMILY HERE, BUT PT THOUGHT STAFF WAS DAUGHTER. NO ACUTE CHANGES NOTED, WILL CONTINUE TO MONITOR.
--- NOTE | 2019-01-07 10:50 | NUR ---
SHE TOOK A NAP IN THE RECLINER AFTER EATING 100% OF BREAKFAST. SHE HAD A LARGE BM IN THE BATHROOM. SHE AMBULATES INDEPENDENTLY WITH SOME SUPERVISION. BEFORE HER NAP SHE WAS GETTING AGITATED BUT DID NOT REQUIRE MEDICATION. SHE REMAINS CONFUSED TO LIFE BUT KNOWS HER NAME AND CAN FOLLOW SOME INSTRUCTIONS.
--- NOTE | 2019-01-07 16:48 | NUR ---
SHE HAS BEEN RESTLESS OFF AND ON TODAY, WALKING IN THE OBRIEN AND ONCE ENTERING ANOTHER PATIENT'S ROOM. COOPERATIVE. SHE KEEPS TALKING ABOUT HER BABY THAT SHE HASN'T SEEN YET. HER IS HERE TO VISIT HER.
--- NOTE | 2019-01-07 18:02 | NUR ---
HER IS STILL HERE WITH HER. SHE IS EXTREMELY CONFUSED BUT PLEASANT AND SWEET TO HIM AND US. SHE EATS WELL AND DRINKS WELL. SHE IS BOTH CONTINENT AND INCONTINENT. TEMP 99.3 THIS AFTERNOON.
--- NOTE | 2019-01-08 05:43 | NUR ---
78 year old female continues with guardianship letter in chart due to dementia with aggitated features. She is up ad ines and no agressive behaviors noted. She has meds crushed and put in vanilla pudding and did initally rehect HS RX due to bitter taste. She did take all of hs med with coaxing and assist. She than slept sounly after some wandering into halls. She redirects without difficulty. Tylenol 650 mg given crushed for percieved s/sx pain generalized with helpful effect.
--- NOTE | 2019-01-08 17:04 | NUR ---
PATIENT ALERT TO SELF AND S.O. AMBULATES W/FAIRLY STEADY GAIT IN ROOM AND HALLWAY. COMES OUT OF ROOM OFTEN. MEDICATED FOR BACK PAIN W/GOOD RESULTS. MEDICATED FOR AGITATION W/FAIRLY GOOD RESULTS. COOPERATIVE BUT TAKES QUITE AWHILE TO COMPLY. VISITING W/S.O. AWAITING PLACEMENT. NOT VIOLENT OR AGGRESSIVE. UNLABORED RESPIRATIONS. BED IN LOW POSITION. DOES NOT USE CALL LIGHT. CAMERA ON. DOES NOT USE BATHROOM. INCONTINENT OF URINE. WILL CONTINUE TO MONITOR.
--- NOTE | 2019-01-08 23:24 | NUR ---
PT has been up on secure unit wanders at times she is intrusive but she does not show agressive behavior. She is fixated on the Babies and her Nieces and Grandchildren. Her Spouse was here on day shift and she is unsure how long they have been ? She said she found out he had a Child? Placement pending to secure unit whe she can wander. Takes meds crushed in 1 spoonful, then vanilla pudding. continues observed by camera. ambulates with slightly unsteady gait. Uses toilet and wears brief and is also incontinent of urine. no usually incontinent of bowel.
--- NOTE | 2019-01-09 05:59 | NUR ---
PT continues to be alert and agitated activity at times cooperative with small amts of meds crushed and given in pudding. She drinks milkshake and pudding 100 %. She wanders and does redirect without any agressive behavior. Speech continues very nonsensical. She had visit from her Spouse who is not planning to take her home. Continues unable to need secure environment due to wandering. Discharge planning to facility continues. Tolerating diet and activity, able to ambulate unassisted and is on room air. Asks for hugs and stays clothed for 12 hour shift. under remote camera monitor.
--- NOTE | 2019-01-09 08:30 | NUR ---
Chantal is up ambulating in her room to the hallway door. She handed this freelance writer her soiled attends. PRODUCT MARKETING INTERN assisted Chantal into the bathroom to get her clean and a new attend placed. Chantal is smiling this morning. She is cooperative with care. No distress noted.
--- NOTE | 2019-01-09 18:10 | NUR ---
ALERT TO SELF. FIXATED ON "HER BABIES" WHICH HER VALDEZ SAYS SHE DOES NOT HAVE ANY THAT HE IS AWARE OF. SOMETIMES NONSTOP TALKING. AMBULATORY OFTEN IN ROOM AND IN HALLWAY. INCONTINENT OF URINE. UNLABORED RESPIRATIONS. WCTM.
--- NOTE | 2019-01-10 00:24 | NUR ---
PT CONTINUES ALERT AND CONFUSSED WITH NO AGRESSIVE BEHAVIOR. Wanders sometimes is slow to redirect. incontinent and confused by toileting. Says she needs to use bathroom and when assisted does still have incontience.She is being observed on camera and she used a washcloth on floor then to periarea and resists using clean wipe. Continues to ruminate about 2 baby girls. She is and when reminded she was 30 years she says less negative things about [place]. Medicated for back and neck pain with tylenol with helpful effect. able to feed self and requests cold drinks. likes ensure. Poor safety awareness, needs secure envirinment due to wandering. Stated zyprexa 2.5 mg odt bid and she says decreased voices. slightly unsteady gait.
--- NOTE | 2019-01-10 01:25 | NUR ---
continues to be confused about toileting. resists going into bathroom or bedside commode is incontinet of urine large amts. needs assist to change attends.
--- NOTE | 2019-01-10 06:47 | NUR ---
pt able to read clearly and she does have ability to focus at times then returns to confused behaviors. she continues incontinent in pullup brief and needs assist to change wet depends. at times pleasant, irritated with toileting. appetite good , gait unsteady at times but uses no aid. Room air, good appetite. She was cooperative with medication administeration but needs supervision and cues to take meds 1 at a time.
--- NOTE | 2019-01-10 06:57 | NUR ---
pt aggitated with MAle SWEET POTATO DISINTEGRATOR when he approached her to change wet depends pullup. This RN able to assist PT to remove wet brief.
--- NOTE | 2019-01-10 16:25 | NUR ---
SHIFT SUMMARY- PT AXO TO SELF. NONSENSICAL SPEECH. FLIGHT OF IDEAS. PT DENIES PAIN. DENIES N/V. DENIES SOB. RESP E/U ON RA. COOPERATIVE WITH CARE. INDEPENDENT IN THE ROOM. NO OTHER SIGNIFICANT CHANGES THIS SHIFT.
--- NOTE | 2019-01-11 04:54 | NUR ---
SHIFT SUMMARY PT ADMITTED FOR AGITATION, DNAGER TO [facility]. DNR. REGULAR DIET WITH NO KNIFE. NO IV ACCESS NEEDED. ENCOURAGE ORAL FLUID INTAKE. GUARDIANSHIFP LETTER IN THE CHART. MEDICATIONS CRUSHED IN APPLESAUCE. HX OF VASCULAR DEMENTIA. INDEPENDENT IN ROOM AND HALLWAY. THE PT ADMITTED WITH A HISTORY OF TIA, CAD, CO, AND DEMENTIA AFTER NEIGHBORS APPARENTLY FOUND THE PT WONDERING IN THE STREET. AFTER AND EVALUATION BY A PSYCHIATRIST THE PT WAS THOUGHT TO HAVE VASCULAR DEMENTIA WITH PSYCHOSIS AND WAS STARED ON ANTIPHYSCHOTICS. THE PT IS NOW AWAITING PLACEMENT. THE PT HAS NOT APPEARED TO SLEEP SO FAR THIS SHIFT. THE PT FREQUENTLY REMOVES ATTENDS AFTER INCONTINENCE AND PLACED DIRTY ATTENDS IN VARIOUS PLACES. THE PT WAS NOTED X2 WALKING IN THE OBRIEN WITH NO ATTENDS IN PLACE AND BUTTOCKS SHOWING. PT ENCOURAGE TO RETURN TO ROOM AND NEW ATTENDS APPLIED. THE PT HAS BEEN UP IN ROOM AND OBRIEN THROUGHOUT THE NIGHT. PT CARRIES AROUND SERGEI BEAR IN ROOM, FOLDS BLANKETS, AND IS VERY BUSY THROUGHOUT THIS SHIFT. THE PT IS IN ROOM AT THIS TIME WITH NO APPARENT SIGNS OF ACUTE DISTRESS. FREQUENT VISUAL CHECKS FOR SAFETY. WILL CONTINUE TO MONITOR.
--- NOTE | 2019-01-11 08:00 | NUR ---
PT. AMBULATING OUT INTO HALLS AND TRYING TO LISTEN WHEN REPORT BEING GIVEN. PT. CONFUSED TO WHERE SHE IS, THINKS SHE'S AN RN. PT. EASILY REDIRECTABLE.
--- NOTE | 2019-01-11 10:55 | NUR ---
Visited with Chantal as she was wandering in the hallway today. She handed me some socks, an attend and a roll of coban that she wanted me to have. She is looking for "the bear." Redirected her to her room and she found the stuffed animal bear in her bed. manager department engaged Chantal in conversation when she entered her room. No distress noted at this time.
--- NOTE | 2019-01-11 17:00 | NUR ---
PT. BECOMING COMBATIVE AND WANDERING INTO OTHER PATIENTS ROOM, SAYS THIS IS HER HOUSE AND SHE CAN DO WHAT SHE WANTS. PICKED OF WET FLOOR SIGN AND TRIED TO SWING IT AT STAFF, TOOK MY PAPER AND RIPPED IT UP BECAUSE IT WAS HERS. UNABLE TO REDIRECT CALLED DR. PADRON FOR IM ZYPREX AND PT. WILL NOT TAKE ANY MEDS FROM US.
--- NOTE | 2019-01-11 18:11 | NUR ---
Mrs. Roman was calm, but restless in room. I met her in the dougherty, and she told me she "had to get ready for the next patient." I took her back to her room and we folded pieces of paper on her bedside table. She is easily redirected and appeared to enjoy companionship. She is unable to hold lucid conversation, and moves from task to task for no clear reason. That said, she enjoys staying busy and having some small purpose. Today, we had a good rapport. Putty Maker services will remain available.
--- NOTE | 2019-01-11 19:11 | NUR ---
PT. WAS QUIET FOR A WHILE AFTER THE IM ZYPREXA BUT IS NOW OUT WANDERING IN OBRIEN AND IS HARD TO REDIRECT. REPORT GIVEN TO ONCOMING RN.
--- NOTE | 2019-01-12 04:25 | NUR ---
SHIFT SUMMARY THE PT HAD A SIGNIFICANT CHANGE IN BEHAVIORS THIS NIGHT. THE PT WAS CONTINUALLY WALKING INTO PT ROOM, TURNING ON LIGHTS, GETTING INTO DRAWS, AND DISTRUPTING THE CARE OF OTHER PTS. THE PT TOOK OFF ATTENDS AND ENTERED PT ROOM ACCROSS THE OBRIEN WHILE FAMILY WAS VISITING WITH A CC PT. AFTER ATTEMPTING TO REDIRECT PT AND DISTRACT PT FOR APPROXIMATELY 5.5 HRS THE PT BECAME INCREASINGLY AGITATED AND FINALLY WAS UNABLE TO CONSOLE, DISTRACT, OR REDIRECT. THE PT APPEARED VERY WEAK WITH LEGS SHAKING FROM WALKING IN ROOM AND OBRIEN AND WAS STUMBLING DUE TO POOR BALANCE AFTER NIGHT MEDICATIONS WERE ADMINISTERED. CALLED FOR SECURITY TO ASSIST TO GET PT INTO BED. PT BECAME COMBATIVE WITH SECURITY BUT THEY WERE ABLE TO ASSIST WITH GETTING PT TO BED. OBTAINED ORDER FOR CHEIKH VEST THE SAFETY OF PT AND OTHER PTS AND FAMILIES. THE PT INITIALLY RESPONDED TO CHEIKH WITH SCREAMING, CURSING, PULLING AND TUGGING AT RESTRAINT. PT NOW APPEARES MORE RELAXED THE EARLIER BUT PT HAS STILL NOT APPEARED TO SLEEP FOR WHAT APPEARS TO BE ABOUT 4 DAYS ACCORDING TO PREVIOUS REPORTS. PT HAS NOT SELPT ON WOOD CRAFTER FOR PAST 2 NIGHTS THAT THIS NURSE HAS WITNESSED. BED ALARM FOR SAFETY. WILL CONTINUE TO MONITOR.
--- NOTE | 2019-01-12 14:07 | NUR ---
AFTER PATIENT FINISHED LUNCH SHE WAS TAKEN TO BR AND THEN SETTLED IN BED. B-52 SHOT IM GIVEN PER DR. FOSS'S ORDERS. PT. HAS NOT SLEPT FOR THE LAST 2 DAYS AND IS EXTREMELY CONFUSED AND DELIRIOUS. HAD TO BE PLACED IN VEST RESTRAINT TO KEEP HER FROM WANDERING INTO OBRIEN AND OTHER PEOPLES ROOMS. LAYING IN BED AT THIS TIME, VISITING WITH HER BROTHER YAZMIN. VEST RESTRAINT IN PLACE.
--- NOTE | 2019-01-12 18:25 | NUR ---
volunteer sent to spend theraputic time with patient.
--- NOTE | 2019-01-12 19:02 | NUR ---
PT. SLEEPING AT THIS TIME, BREATHING EVEN. PT. HAS NOT SLEPT FOR ABOUT 2 DAYS NOW, WILL DOSE OFF FOR 10-15 MINUTES AND BE BACK AWAKE AGAIN. BROTHER YAZMIN WAS HERE TO SEE HER TODAY, WILL BE BACK AROUND 9-10 IN THE MORNING.
--- NOTE | 2019-01-13 05:12 | NUR ---
SHIFT SUMMARY PER REPORT THE PT WAS GIVEN B52 ON TO ASSIST WITH CALMING DOWN. THE PT WAS ASLEEP UPON ARRIVAL ON SHIFT AND DID NOT WAKE UNTIL AROUND 0300 THIS SHIFT. PT WAS THEN GIVEN HALF SANDWHICH, 2 VANILLA PUDDINGS, A HERNANEDZ JELLO, 1 2% MILK, AND AN ENSURE, WHICH THE PT ATE AND DRANK 100%. THE PTS DINNER WAS LEFT FOR WHEN PT WOKE BUT TRAY HAD TO BE DISGARDED DUE TO PT NOT WAKING FOR SO LONG. THE PT IS CURRENTLY SITTING UP IN CHAIR, IN ROOM WITH CHEIKH VEST IN PLACE FOR SAFETY. THE PT WAS GIVEN PAPERS, PAPER TOWELS TO FOLD, AND OTHER ACTIVITIES FOR DISTRACTION. THE PT APPEARS TO BE TOLLERATING SITTING IN CHAIR WELL. NO APPARENT SIGNS OF ACUTE DISTRESS. FREQUENT VISUAL CHECKS DUE TO PT UNABLE TO MAKE NEEDS KNOWN. WILL CONTINUE TO MONITOR.
--- NOTE | 2019-01-13 19:05 | NUR ---
PT. WITHOUT CHANGE THIS SHIFT. STILL HAVING HALLUCINATIONS AND TALKING TO PERSONS NOT THERE LEFT VEST IN PLACE FOR PATIENTS SAFETY AND WELL-BEING
--- NOTE | 2019-01-14 02:54 | NUR ---
01/14/19 0140 PT GIVEN TRIPLE DOSE OF SEDATIVE IM DUE TO HER OUTBURSTS OF EXTREME YELLING AND PULLING HARD ON CHEIKH VEST STRAPS. "CALL THE BUTTONHOLE MAKER!" "I'VE BEEN KIDNAPPED!" DISRUPTING THE OTHER PATIENTS ON THE FLOOR. SEE MAR FOR MEDS GIVEN.
--- NOTE | 2019-01-14 07:28 | NUR ---
01/14/19 0615 SLEPT FOR COUPLE OF HOURS AFTER SEDATIVES GIVEN. YELLING THIS AM BUT THEN TALKS NON-SENSICAL PHRASES.
--- NOTE | 2019-01-14 09:12 | NUR ---
PATIENT HAD LOTS OF MEDICATION LAST NIGHT. SHE IS CURRENTLY SLEEPING. SPOKE WITH CHARGE, AND CLINICAL COORDINATOR. WILL LET THE DOCTOR KNOW THIS MORNING THAT PATIENT'S MEDICATIONS WERE HELD DUE TO HER SLEEPING.
--- NOTE | 2019-01-14 17:42 | NUR ---
SHIFT SUMMARY PATIENT IS PLEASANT IN THE ROOM. SLEPT MOST OF TODAY. WILL ASSESS FOR ANY CHANGES. CHEIKH IS OFF.
--- NOTE | 2019-01-15 06:41 | NUR ---
SHIFT SUMMARY PT IS A 78 Y/O FEMALE, ADMITTED FOR AGITATION. SHE HAS ADVANCED DEMENTIA, AND IS A&O X SELF ONLY. THE PT TENDS TO WANDER THE HALLWAY AND HER ROOM WHILE AWAKE. THE PT SLEPT WELL THOUGH THE NIGHT AFTER RECEIVING HER BEDTIME MEDS. THIS AM, THE PT WOKE THIS AM AND BEGAN WANDERING INTO ANOTHER PT'S ROOM. SHE REFUSED TO RETURN TO HER ROOM, AND SAT IN A CHAIR IN THE HALLWAY. SHE COMPLAINED OF BACK PAIN, BUT WHEN PARAG TYLENOL, REFUSED THE MEDS TWICE AND BEGAN TO GET AGITATED AND SWINGING AT STAFF WHEN MEDS WERE OFFERED. VITALS REMAINED STABLE. NO OTHER ACUTE CHANGES IN PT CONDITION NOTED. WILL CONTINUE TO MONITOR AND TREAT PER EMAR.
--- NOTE | 2019-01-15 15:05 | NUR ---
AT 0900 THIS AM PATIENT BEGAN TO TRY TO WANDER INTO PATIENTS ROOMS. SHE WAS GETTING AGITATED AND TRIED TECHNIQUES TO GET CALMED DOWN, PATIENT WAS PLACED IN A CHEIKH AND CONTINUED TO BECOME AGITATED. PATIENT WAS GIVEN 25MG OF IM BENADRYL, 5MG OF IM HALDOL, AND 2MG OF IM ATIVAN. PATIENT IS CURRENTLY SLEEPING AND WILL CONTINUE TO BE MONITORED. TOOK THE PATIENT ONE HOUR TO FALL ASLEEP, SHE IS IN A CHEIKH WELL STILL ASLEEP.
--- NOTE | 2019-01-15 17:04 | NUR ---
SHIFT SUMMARY PATIENT HAS BEEN PLACED IN A CHEIKH AGAIN AND HAS HAD 25MG OF BENADRYL, 5MG OF HALDOL, AND 2MG OF ATIVAN. SHE HAS BEEN SLEEPING. NO ACUTE CONCERNS AT THIS TIME FOR THE PATIENT.
--- NOTE | 2019-01-16 07:08 | NUR ---
remained in restraints, took medication crushed in pudding, frequent rounding and assesments, no IV, walking rounds completed with returning day staff
--- NOTE | 2019-01-16 16:12 | NUR ---
PATIENT GOT AGITATED. SHE IS NOW TIED DOWN TO THE BED WITH HER CHEIKH POST B52. SHE HAS BEEN GIVEN ANOTHER DOSE OF BENADRYL, ATIVAN, HALDOL MIXTURE IM. PATIENT HAD GONE INTO ANOTHER PATIENT'S ROOM WITH A PILLOW TIED TO HER CHEIKH STRAP AND TRIED TO BARRACADE HERSELF IN THE OTHER PATIENT'S ROOM. SHE THEN DECIDED TO START SWINGING AT AND KICKING THE STAFF. PATIENT NOW TIED TO THE BED WITH HER CHEIKH.
--- NOTE | 2019-01-16 17:43 | NUR ---
SHIFT SUMMARY PATIENT HAS BEEN HAVING AUDITORY AND VISUAL HALLUCINATIONS TODAY. ASSESSED. SHE DID GET AGITATED AND AGGRESSIVE THIS AFTERNOON. SHE WAS GIVEN BENADRYL, HALDOL, ATIVAN COMBINATION IM. SHE AHS YET TO RELAX SINCE THEN. SHE DOES HAVE A CHEIKH VEST IN PLACE.
--- NOTE | 2019-01-16 17:56 | NUR ---
PATIENT WOULD NOT EAT DINNER WHEN TRAY WAS BROUGHT IN THE ROOM. PATIENT STATED TO ME THAT SHE HAD ALREADY EATEN DINER TODAY.
--- NOTE | 2019-01-17 06:01 | NUR ---
SHIFT SUMMARY PT IS A 78 Y/O FEMALE, ADMITTED FOR AGITATION AND END-STAGE DEMENTIA. THE PT IS A&O X SELF ONLY, WITH VISUAL AND AUDITORY HALLUCINATIONS AND IS DIFFICULT TO REDIRECT. THE PT IS CURRENTLY IN A CHEIKH VEST FOR PATIENT AND STAFF SAFETY. THE PT SLEPT OFF AND ON DURING THE MORNING, AND WHEN AWAKE MUMBLED TO HERSELF OR YELLED OUT FOR FAMILY MEMBERS. THE PT DID REPORT PAIN IN HER SHOULDER, BUT REFUSED TO TAKE ANY TYLENOL OR PO MEDS. NO COMPLAINTS OF NAUSEA OR SOB. VITALS REMAINED STABLE. NO OTHER ACUTE CHANGES IN PT CONDITION NOTED. WILL CONTINUE TO MONITOR AND TREAT PER EMAR.
--- NOTE | 2019-01-17 18:37 | NUR ---
SHIFT SUMMARY: PT IS A&O TO SELF. SHE HAS BEEN OUT OF RESTRAINTS SINCE 1529. CHAIR PLACED IN OBRIEN WITH TRAY TABLE. SHE NEEDS CONSTANT SUPERVISION WITH MANY TASKS TO KEEP HER BUSY. SHE IS EATING, DRINKING AND VOIDING WELL. ATTENDS IN PLACE OF OCCATIONAL INCONT. HER BROKEN GLASSES WERE SENT HOME WITH HER FOR SAFETY. SHE LIKES HER MEDS CRUSHED IN VANILLA PUDDING.
--- NOTE | 2019-01-18 04:44 | NUR ---
SHIFT SUMMARY PT SITTING IN CHAIR IN OBRIEN DURING SHIFT REPORT. PT SOON ASSISTED BACK TO BED POSITIONED FOR COMFORT WITH BED ALARM ON FOR SAFETY. PT ONLY STAYED THERE A COUPLE OF MINUTES BEFORE SETTING BEDALARM OFF. PT CAN QUICKLY BECOME AGITATED AND AGGRESSIVE; SCREAMING OUT AT TIMES. REFUSES MEDS UNLESS CRUSHED AND PLACED IN PUDDING A "SNACK". SEROQUEL GIVEN AT HS; SEEMED TO HELP AFTER TAKING EFFECT. PT WOKE A FEW TIMES BRIEFLY, BECOMING AGITATED. ABLE TO REDIRECT BACK INTO BED IN TIME. NO C/O. NO S/SX OF DISTRESS NOTED OR REPORTED, JUST CONFUSED AND DISORIENTED. BED ALARM ON FOR SAFETY AND CALL LT IN REACH.
--- NOTE | 2019-01-18 10:19 | NUR ---
Review of patient with hospitalist. Review of possible treatments for underlying stress and possible depression pt has expressed at times. Physician encouraged increased activity for patient.
--- NOTE | 2019-01-18 17:20 | NUR ---
HOLLERING AND SCREAMING IN ROOM. APPEARS AGITATED. AT BEDSIDE. PT STATES "I'M GETTING MY THINGS AND WALKING RIGHT OUTTA HERE" ATTEMPTS TO REDIRECT UNSUCCESSFUL. SECURITY CALLED. DR. MONTGOMERY INFORMED NEW ORDER RECEIVED FOR AGITATION.
--- NOTE | 2019-01-18 18:13 | NUR ---
SHIFT SUMMARY PLEASANT AND COOPERATIVE UNTIL 2PM TODAY. BECAME INCREASINGLY AGITATED IN ROOM. YELLING OUT AND THREATENING TO "WALK OUT OF THIS PLACE". SECURITY CALLED. PRN MED FOR AGITATION GIVEN. EATING AND DRINKING WELL. MEDICATIONS CRUSHED AND MIXED IN VANILLA PUDDING. STANDBY ASSIST. BED AND CHAIR ALARM. SPOUSE TO VISIT. AWAITING PLACEMENT.
--- NOTE | 2019-01-19 05:25 | NUR ---
EVENT SET UP SPECIALIST SUMMARY NO ACUTE CHANGES THIS SHIFT. PT AAOX1 AND VERY CONFUSED. BED ALARM ON FOR SAFETY PT GETS OUT OF BED WITHOUT ASSISTANCE. PT IS FAIRLY STEADY ON HER FEET AND IS A STANDBY ASSIST WHEN OOB. VSS, WILL CONTINUE TO MONITOR.
--- NOTE | 2019-01-19 12:34 | NUR ---
SITTING IN PT CHAIR IN HALLWAY COLORING. CALM, COOPERATIVE. EATING AND DRINKING WELL.
--- NOTE | 2019-01-19 13:45 | NUR ---
PT YELLING AND ATTEMPTING TO PUSH DOORS OPEN. WALKING INTO OTHER PATIENTS ROOMS; DIFFICULTLY REDIRECTING PATIENT.
--- NOTE | 2019-01-19 18:43 | NUR ---
SHIFT SUMMARY CALM COOPERATIVE AND CONFUSED THROUGHOUT MORNING. BECAME AGITATED AROUND 3PM CONTINUALLY BANGING ON EXIT DOOR AND TRYING TO PUSH UNIT DOORS OPEN. SECURITY CALLED TO BEDSIDE. ADDITIONAL PRN MED FOR AGITATION GIVEN. EATING WELL. CRUSHED MEDS WITH VANILLA PUDDING. DENIES ANY CONCERNS OF PAIN. AMBULATES WELL. AWAITING PLACEMENT.
--- NOTE | 2019-01-20 04:51 | NUR ---
SHIFT SUMMARY PT AWAKE MUCH OF THE NIGHT, FALLING ASLEEP AT APPOX 0200 AND SLEEPING IN BED TIL 0400. PT WOKE AND REFUSED TO GO BACK TO BED. SAT PT OUT IN RECLINER IN THE OBRIEN. PT APPEARED TO DO BETTER BEHAVIORALLY WHEN OUT IN THE OBRIEN WITH THE STAFF TO INTERACT WITH. AFTER 0400 PT DOZED OFF AND ON IN THE RECLINER THE REMAINDER OF THE SHIFT. PT INCONTINENT OFF AND ON. PULL UP IN PLACE. PT REMAINED OUT OF RESTRAINTS THIS EVENING. NO COMPLAINTS OF PAIN. TOOK MEDS CRUSHED IN APPLESAUCE. NO ACUTE CHANGES THIS SHIFT. PT CONFUSED BUT PLEASANT AND COOPERATIVE THROUGHOUT THE NIGHT.
--- NOTE | 2019-01-20 18:31 | NUR ---
SHIFT SUMMARY PT OUT IN HALLWAY MOST OF DAY. ABLE TO BE REDIRECTED EASILY. CARRYING ITEMS IN HER HANDS AND SITTING IN CHAIR ON AND OFF. STATING I NEED TO GO TO THE BATHROOM SEVERAL TIMES AND DIRECTED TO RESTROOM AND VOIDING REMAINING CONTINENT. CAME TO VISIT AND PT WAS EXCITED WHEN HE FIRST ARRIVED GIVING HIM A HUG. THEY WENT IN PTS ROOM AND THEIR VOICES BECAME LOUD. PT CAME FROM ROOM AND WAS VISIBLY AGITATED. PACING HALLS AND ATTEMPTING TO LEAVE AND YELLING AT STAFF. SPOKE WITH ABOUT PTS BEHAVIOR WHEN HE FIRST ARRIVED AND AFTER BEING HERE FOR SEVERAL MINUTES. ENCOURAGED TO CALL BEFORE COMING AND SEE HOW PT IS DOING. ALSO ENCOURAGED HIM TO REMEMBER SHE DOESN'T LIVE IN OUR WORLD MENTALLY AND SHE RESPONDS BETTER WHEN WE ENTER HER WORLD.
--- NOTE | 2019-01-21 03:45 | NUR ---
SHIFT SUMMARY PT SLEPT MUCH BETTER THIS EVENING. UP IN CHAIR FOR START OF SHIFT. FREQUENTLY FIDGETS WITH THINGS. ALWAYS BUSY WHEN AWAKE. INCONTINENT/CONTINENT. PULL UP ON. PT REMAINS PLEASANTLY CONFUSED. NO COMBATIVE BEHAVIOR. CONTINUES TO AWAIT PLACEMENT. NO ACUTE CHANGES. VSS. WILL CONTINUE TO MONITOR.
--- NOTE | 2019-01-21 14:27 | NUR ---
pt up in chair going through her book affect good. Review of care with care managers
--- NOTE | 2019-01-21 18:37 | NUR ---
DC SUMMARY BAILEY WAS PLEASANTLY CONFUSED ALL DAY UNTIL AROUND 1700. SHE BECAME VERY AGITATED AND STARTED THROWING THINGS, YELLING ABOUT HOW WE ARE LETTING THEM KILL HER BABIES. GAVE HER IM BENADRYL, HALDOL, AND IM ATIVAN TOGETHER ORDERED, WHICH WORKED WELL FOR HER AND SHE IS NOW RESTING IN BED SLEEPING. SHE TOOK HER PILLS CRUSHED IN PUDDING WITHOUT ISSUES. SHE WAS INDEPENDENT IN HALLWAY WITH DOOR LOCKED, REQUIRING REDIRECTION TO AVOID ENTERING OTHER PEOPLE'S ROOMS. TM
--- NOTE | 2019-01-22 06:53 | NUR ---
pt bed was socking wet did bed change put her in shower to clean her up changed linnes up her in a chair gave luis angel ross,
--- NOTE | 2019-01-22 18:24 | NUR ---
PATIENT HAS BEEN WANDERING THE OBRIEN AND IF NOT UNDER CONSTANT SUPERVISON WILL GO INTO PATIENTS ROOMS. SHE IS OFTEN NON COMPLAINT WHICH IS TO BE EXPECTED WITH HER ADVANCING DEMENTIA. SHE IS COMBATIVE AND NONSENSICAL . PATIENT TO BE MEDICATED PER EMAR.
--- NOTE | 2019-01-22 23:13 | NUR ---
PATIENT HAS BEEN AGITATED THIS SHIFT; SHE RECEIVED ATIVAN IM AT SHFIT CHANGE AND HALDOL IM AT 1730. I WAS ABLE TO GET HER TO TAKE HER BEDTIME SEROQUEL BUT SHE IS STILL UP AND DOWN FREQUENTLY. JUST TOOK HER INTO THE BATHROOM AND SHE VOIDED AN UNMEASURED AMOUNT. CLEAN LINENES AND BACK TO BED.
--- NOTE | 2019-01-23 08:01 | NUR ---
0800 PATIENT WAS VERY AGITATED FROM THE START OF SHIFT. SHE WAS INCONSOLABLE AND YELLING OUT . PATIENT WAS NOT ABLE TO BE CALMED REGARDLESS OF THE EFFORTS OF THE STAFF. NURSE ADMINISTERED A B-52 . AWAITING RESULTS. PATIENT IS IN BED, ALARM ON. SHE WAS CHANGED OF HER WET BRIEF AND STAFF ATTEMPTED TO GET A CLEAN GOWN ON HER.
--- NOTE | 2019-01-23 18:28 | NUR ---
PATIENT WAS EXTREMELY AGIATED THIS MORINING AT THE START OF SHIFT. B52 INJECTION WAS GIVEN PER EMAR. PATIENT EVENTUALLY CALMED AND SLEPT THE MORNING. SHE WOKE AND WAS GIVEN A SHOWER AND BED CHANGE. SHE BECAME AGITATED AGAIN AND A DOLL WAS LOCATED AND GIVEN TO HER. THIS HAS SEEMED TO KEEP HER CALM AND PREOCCUPIED MOST OF THE SHIFT WITHOUT FURTHER MEDICATION INTERVENTION NEEDED. SHE HAS BEEN OUT IN THE OBRIEN THE LAST 4 HOURS OF THE SHIFT EITHER PLAYIN WITH HER BABY OR RESTING. NO CHANGES TO PATIENTS CONDITION.
--- NOTE | 2019-01-24 06:02 | NUR ---
nurse told me to not wake pt up to get vitals due to her not sleeping well throughout most of the weekend.
--- NOTE | 2019-01-24 17:21 | NUR ---
SUMMARY PT HAS REMAINED CONFUSED AND AGITATED, SLEPT IN THIS MORNING, REFUSED HER MEDS, ESCALATED AFTER LUNCH, REQUIRED IM HALDOL, ATIVAN, AND BENADRYL TO CALM HER, SPOUSE CAME TO VISIT BRIEFLY, PT WITH CHAIR OR BED ALARM ON FOR SAFETY, WILL CONT TO MONITOR
--- NOTE | 2019-01-25 05:46 | NUR ---
*SHIFT SUMMARY* PATIENT TALKS TO STAFF. PT SLEPT MOST OF NIGHT, DID TRY AND GET OUT OF BED SEVERAL TIMES BUT WAS TOO WEAK TO DO SO LIKELY FROM PREVIOUS MEDICATIONS GIVEN ON DAYSHIFT. CHEIKH VEST PLACED FOR PT SAFETY. VITALS STABLE.
[2019-01-25 15:01] LABS: Source, Urine Clean Catch
[2019-01-25 15:11] LABS: Appearance, Urine Clear (Clear); Bilirubin, Urine Neg (Neg); Blood, Urine 1+ (Neg); Color, Urine Yellow (P-Yellow); Glucose Qualitative, Urine Neg (Neg); Ketones, Urine Neg (Neg); Leukocyte Esterase, Urine 1+ (Neg); Nitrite, Urine Neg (Neg); Protein, Urine Neg (Neg); Specific Gravity, Urine 1.025 (1.003-1.022); Urobilinogen, Urine NORM (Normal)
[2019-01-25 15:17] LABS: Red Blood Cells, Urine 0-2 /hpf (0-2)
[2019-01-25 15:18] LABS: Bacteria Not Seen /hpf; Squamous Epithelial Cells Few /hpf (Few)
--- NOTE | 2019-01-25 17:31 | NUR ---
SUMMARY PT CONFUSED AND AGITATED T/O THE DAY, DIFFICULT TO REDIRECT, REQUIRED MEDICATION FOR AGITATION PER EMAR SEVERAL TIMES, PT MORE AGITATED AT THE END OF THE DAY, YELLING AND SCREAMING DESPITE FREQUENT REASSURANCES, PT GIVEN IM MEDICATION FOR INCREASED AGITATION AND COMBATIVENESS, PT OCC THROWING ITEMS IN THE ROOM SHE CAN REACH, PT REFUSED LAB DRAWS THIS MORNING, VSS, NO ACUTE CHANGES, WILL CONT TO MONITOR
--- NOTE | 2019-01-26 05:22 | NUR ---
*SHIFT SUMMARY* PT IS CONFUSED. IN CHEIKH VEST. PT CONTINUED TO TRY AND GET OUT OF BED THROUGHOUT NIGHT. PT SLEPT OFF AND ON. BED LOWERED AND LOCKED WITH ALARM ON. NO NEW CHANGES, CALL LIGHT IN REACH. VITALS STABLE.
--- NOTE | 2019-01-26 19:10 | NUR ---
PT. HAS BEEN OUT OF CONTROL MOST OF THE DAY TODAY. SHOWER WAS GIVEN FIRST THING THIS MORNING. SHE HAS BEEN UP IN CHAIR PART OF THE DAY. THREW HER BKFST TRAY ON THE FLOOR THIS MORNING. SCREAMING AND CRYING TO TOP OF LUNGS MOST OF THE DAY. SEROQUEL DOES NOT SEEM TO BE WORKING. B52 WAS GIVEN AROUND 1830 AND HAS CALMED DOWN SOMEWHAT SINCE THEN.
--- NOTE | 2019-01-27 01:37 | NUR ---
PT CONTINUES IN VEST RESTRAINT TP PREVENT FALLS AND INJURY. oRDER RENEWED WITH SINPU [facility]AM DOCTOR AND PT HAD BEEN RESTING COMFORTABLY AFTER RECIEVING ATIVAN HALDOL AND BENADRYL IM AROUNG 1800. tOOK SEROQUEL LATE AT 0120 CRUSHED AND GIVEN IN PUDDING.CONTINUE RESTRAINT MONITOR PER POLICY.
--- NOTE | 2019-01-27 14:00 | NUR ---
SOLE ASSESSOR NOTE- PT HAS BEEN SLEEPING T/O THE SHIFT. PT WOKE AND ATTEMPTED TO GET OUT OF BED, INJURY WAS PREVENTED BY THE CHEIKH VEST. PT WAS REPOSITIONED IN BED GOWN WAS CHANGED AND ATTENDS WERE CHANGED. PT WAS ANGRY AND NOT REDIRECTABLE, SHE BEGAN ATTEMPTING TO HIT STAFF ATTEMPTING TO CHANGE HER. A THIRD STAFF MEMBER WAS CALLED WHEN SHE BEGAN TO TRY TO KICK STAFF. THE PT ATTEMPTED TO BITE STAFF WHEN HER GOWN WAS BEING CHANGED. RN PRESENT FOR THE INCIDENT, NO ONE WAS INJURED, CHEIKH VEST IN PLACE WELL 4 SIDE RAILS PER ORDER. PT BEGAN SCREAMING OUT AND CONTINUED DOING SO EVEN WHEN STAFF ATTEMPTED TO REDUCE STIMULUS AND REDIRECTION ATTEMPTS SEEMED TO MAKE HER MORE AGGITATED. PT MEDICATED BY RN.
--- NOTE | 2019-01-27 18:48 | NUR ---
PT. SITTING IN BED AT THIS TIME EATING DINNER. PT. QUIET AND COOPERATIVE MOST OF THE MORNING. AROUND 1345 WE ATTEMPTED TO CHANGE PATIENT AND SHE BECAME VERY COMBATIVE AND SCREAMING AND CALLING OUT FOR THE POLICE, HAD TO ENLIST THE HELP OF ANOTHER RN ON THE FLOOR TO CHANGE ATTENDS AND BEDDING. PT. HAD BEEN SCREAMING FOR THE LAST HOUR ABOUT NOTHING IN PARTICULAR. GOT PT. CHANGED AND CLEAN GOWN PLACED TIED VEST RESTRAINTS ONCE AGAIN. PT. CONTINUED TO SCREAM AND STICK LEGS THROUGH THE BED RAILS, B52 SHOT GIVEN AND PT. CALMED DOWN AND SLEPT UNTIL AROUND 1700.
--- NOTE | 2019-01-27 23:44 | NUR ---
dc vest restraint for now pt resting quietly in bed. took hs med and tylenol.
--- NOTE | 2019-01-28 05:56 | NUR ---
PT had been restrained with vest restraint to prevent falls and injury but removed vest around 2310 and PT being observed at all times with camera and junior technical writer. PT had recieved im haldol benadryl and ativan for agressive behavior and has had no agression this shift. Cooperative with seroquel 400 mg po crushed at HS. Poor fluid intake incontinent if urine. Continues with nonsensical speech and does not use callbell. calls out at times and resists cares especially toileting.
--- NOTE | 2019-01-28 19:26 | NUR ---
SHIFT SUMMARY: NO ACUTE CHANGES TO REPORT THIS SHIFT. PT ALERT; ORIENTED TO SELF; EMOTIONALLY LABILE; UNCOOPERATIVE WITH CARE. HIGH FALL RISL; COMBATIVE; CHEIKH VEST RESTRAINT INITIATED THIS SHIFT. AWAITING PLACEMENT. REPORT GIVEN TO ONCOMING RN.
--- NOTE | 2019-01-29 05:29 | NUR ---
0330 PT LYING IN BED, EYES CLOSED, APPEARS TO BE RESTING. BREATHING IS EVEN, UNLABORED. NO APPARENT SIGNS OF DISTRESS. CALL LIGHT IS IN REACH.
--- NOTE | 2019-01-29 05:30 | NUR ---
PT LYING IN BED, EYES CLOSED, APPEARS TO BE RESTING. WAKES EASILY TO VERBAL STIMULI. NO APPARENT SIGNS OF DISTRESS. CALL LIGHT IS IN REACH. NO OTHER CHANGES THIS SHIFT.
--- NOTE | 2019-01-29 07:06 | NUR ---
SHIFT SUMMARY PT IS A 78 Y/O FEMALE, ADMITTED FOR AGITATION AND DANGER TO OTHERS. SHE IS A&O X SELF ONLY. THE PT'S AFFECT IS VERY LABILE, AND WAS INTERMITTENTLY AGITATED AND VIOLENT WITH STAFF, AND CALM AND COOPERATIVE. VITALS REMAINED STABLE. NO COMPLAINTS OF PAIN, NAUSEA OR SOB DURING THE NIGHT. NO ACUTE CHANGES IN PT CONDITION NOTED DURING THE NIGHT. REPORT GIVEN TO ONCOMING NURSE.
--- NOTE | 2019-01-29 19:12 | NUR ---
SHIFT SUMMARY: NO ACUTE CHANGES TO REPORT THIS SHIFT. PT ALERT; ORIENTED TO SELF; IRRITABLE; CONFUSED; HIGH FALL RISK; CHEIKH VEST IN PLACE. UNCOOPERATIVE WITH CARE. AWAITING PLACEMENT. REPORT GIVEN TO ONCOMING RN.
--- NOTE | 2019-01-30 05:59 | NUR ---
SHIFT SUMMARY: PT IS ALERT AND ORIENTED TO SELF. PT WAS MOSTLY CALM THROUGHOUT THE NIGHT, SOME MINOR AGITATION AT TIMES. PT IS A 1-2 PERSON ASSIST DURING AMBULATION. PT TOOK MEDS WHOLE WITH WATER. PT SLEPT VERY LITTLE OVERNIGHT. PT INCONTINENT ON SEVERAL OCCASIONS, CHANGED AND CLEANED NEEDED. PT SHOWS NO S/S FOR PAIN, NAUSEA, VOMITING, AND SOB. AWAITING PLACEMENT. NO ACUTE CHANGES. WILL REPORT TO DAY NURSE.
--- NOTE | 2019-01-30 17:53 | NUR ---
SHIFT SUMMARY PT HAS BEEN AWAKE ALL SHIFT, SITTING UP IN CHAIR WITH VEST RESTRAINT. PT IS VERY CONFUSED AND ORIENTED TO SELF ONLY. PT IS DIFFICULT TO REDIRECT AND BECOMES AGITATED AT TIMES. NO ACUTE CHANGES AT THIS TIME. WILL CONTINUE TO MONITOR PT AND REPORT TO ONCOMING RN.
--- NOTE | 2019-01-31 06:59 | NUR ---
SUMMARY: PT ENTIRELY CONFUSED EXCEPT TO SELF AND SPEAKS NONSENSICALLY. SHE OCCASIONALLY SPECIFIES NEEDS APPROPRIATELY BUT MOOD IS LABILE AND BEHAVIOR CAN ESCALATE QUICKLY. SHE HAS POTENTIAL TO BE NONCOMPLIANT W/CARE, AGGRESSIVE, COMBATIVE AND IRRITABLE. CHEIKH VEST IS REQUIRED D/T WEAKNESS AND IMPULSIVITY. SHE WAS COOPERATIVE THIS SHIFT AND SLEPT MOST OF NOCTE. PT ENJOYS SITTING IN RECLINER IN HALLS AND DID SO AT BEGINNING AND END OF SHIFT. SHE HAS A BABY DOLL THAT SHE TAKES CARE OF AND ACTIVITIES AT BEDSIDE FOR DISTRACTIONS. PT IS MEDICALLY STABLE W/O ACUTE CHANGES. NO PRN MEDS WERE REQUIRED. VSS/AFEBRILE. WE ARE AWAITING PLACEMENT AND MAY D/C TODAY OR THURSDAY TO .
--- NOTE | 2019-01-31 11:32 | NUR ---
PT IS ALERT AND ORIENTED TO SELF. SHE IS IN A CHEIKH VEST RESTRAINT. SHE IS CALM. SHE HAS BEEN SITTING IN THE RECLINER IN THE OBRIEN WITH STAFF THROUGHOUT THE MORNING. SHE REFUSED MORNING MEDICATIONS. SHE IS PLEASANT BUT CONFUSED. WILL CONTINUE TO MONITOR.
--- NOTE | 2019-01-31 17:59 | NUR ---
PT BECAME AGITATED LATER IN THE AFTERNOON. SHE BEGAN THROWING OBJECTS AT STAFF AND YELLING. SHE WAS DIFFICULT TO CONSOLE. HALDOL WAS ADMINISTERED PER EMAR. PT WAS SOON AFTER HELPED TO THE RESTROOM AND THEN TO BED. SHE IS IN BED NOW, SLEEPING. WILL CONTINUE TO MONITOR. THE PLAN FOR THIS PATIENT IS TO TRANSFER TO A FACILITY CALLED [facility] TOMORROW MORNING. POSSIBLY AROUND 1030. THE PT'S SPOUSE WAS NOTIFIED OF THE TIME THIS MORNING.
--- NOTE | 2019-02-01 06:08 | NUR ---
SHIFT SUMMARY RESPONDS TO VERBAL STIMULI WITH NON-SENSICAL SPEECH. CALLS OUT WHEN IN NEED; DOES NOT USE CALL LIGHT. REMAINS IN CHEIKH VEST FOR SAFETY; ATTEMPTS TO EXIT BED FREQUENTLY. IMPULSIVITY. NO C/O PAIN/DISCOMFORT, DOES NOT DISPLAY SIGNS/SX. APPEARED TO REST MUCH OF SHIFT. VSS/AFEBRILE. NO ACUTE CHANGES OVERNIGHT. BED IN LOWEST POSITION. ALARM ON. CALL LIGHT AND BELONGINGS WITHIN REACH. WCTM. REPORT TO ONCOMING RN.
--- NOTE | 2019-02-01 11:04 | NUR ---
PT WAS AOX3 WTIH CONFUSION AND SOME MILD AGITATION THIS MORING. PT WAS NOT WANTING TO TAKE MORNING MEDICATIONS AND WAS INCREASING IN AGITAION. DR SEGOVIA REQUESTED PT TO BE TREATED WITH HER IM ANXIETY MEDICAITON PRIOR TO TRANSPORT. THIS WAS COMPLETED AND PT WAS VERY COOPERATIVE WHEN [facility] ARRIVED TO TRANSPORT. CHECK FOR PAYMENT OF RIDE WAS GIVEN TO [employer] AND PT'S PACKET AND PERSONAL BELONGING GIVEN TO [facility] FOR TRANSPORT. REPORT CALLED TO [facility] AND GIVEN TO DHARA TORRES. PT CALM AND TALKATIVE SHE WAS TAKEN OUT IN WHEELCHAIR. NO DISTRESS NOTED.
== END 2019-02-01 10:46 ==
LOC: ER 15:41 → MEDS 15:42 → EOR 15:42 → MEDS 12-06 15:18
PROVIDERS: Internal Medicine; ADMIT Emergency Medicine
DX: F01.51 Vascular dementia, unspecified severity, with behavioral disturbance (principal); I10 Essential (primary) hypertension; I25.10 Atherosclerotic heart disease of native coronary artery without angina pectoris; E03.9 Hypothyroidism, unspecified; I25.2 Old myocardial infarction; Z86.73 Personal history of transient ischemic attack (TIA), and cerebral infarction without residual deficits; Z87.891 Personal history of nicotine dependence; Z88.0 Allergy status to penicillin; Z88.1 Allergy status to other antibiotic agents; Z88.8 Allergy status to other drugs, medicaments and biological substances; Z88.5 Allergy status to narcotic agent; Z88.6 Allergy status to analgesic agent; Z91.041 Radiographic dye allergy status; Z88.2 Allergy status to sulfonamides; Z79.899 Other long term (current) drug therapy; Z79.82 Long term (current) use of aspirin
CPT/HCPCS: 36415; 80053; 80069; 81001; 81025; 82947; 83735; 84132; 84443; 85025; 87086; 96372; 97110; 97116; 97162; 97166; 97530; 99285-25; G0378; G0480; J0696; J1200; J1630; J2060; P9612; Q3014